=== PATIENT | female | born 1970 | race Caucasian/White ===

== ENCOUNTER → 2018-06-17 | Outpatient (CLI) | payer OTHER ==
[2018-06-17 15:15] VITALS: BP 109/57; PULSE 76; TEMP 97.4; BMI 22.1
--- NOTE | 2018-06-17 15:59 | P.GSHP ---
History of Present Illness H&P Date: 06/17/18 Patient with a complaint of white discharge from the left breast nipple and circumareolar incision site. The discharge is quite thick and creamy. She has had multiple prior procedures approximately 15 to drain abscesses in that breast in the past. The last surgery was approximately 3 years ago. She did well up until this time and is now noted drainage at this site again. The patient has had no fever, there is no redness of her breast. The patient had a bilateral mammogram performed [id number]. The findings on this revealed no mammographic evidence of cancer. Annual mammographic screening was recommended. The patient also had an ultrasound performed of her left breast which did not show any lesions of concern. The patient notes increased fullness in the left breast in the upper outer quadrant area which is tender. This has been present for several years. The patient has no nipple discharge or masses of concern in the right breast. The patient began having problems with left breast abscess as a mastitis approximately 20 years ago. Following the of her daughter she developed a mastitis and has subsequently had multiple abscesses drained in the left breast. The patient does not drink caffeinated beverages, she does not eat chocolate. The patient does smoke approximately 5 cigarettes per day for 30 years. Family history: 1. Mother cervical cancer 2. 5 Maternal great aunts, with breast cancer Hormonal history: Menarche: 13 Pregnancies: 6, 2 live births, first at 25, patient did not breast-feed Menopause: Surgical at 30 her ovaries were not removed control pills: Negative Hormones: Negative Past surgical history: 1. Hysterectomy at 30 her ovaries were not removed, told endometriosis 2. Multiple breast surgeries Medical history: 1. 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 Kidney failure transient at the time of the strokes 3. 2015 MRSA pneumona, patient was hospitalized for approximately a month Social history: Smokin cigarettes per day for 30 years Alcohol: Negative Drugs: Negative - Constitutional Constitutional: Denies chills, Denies fever - EENT Comment: Patient is seen by a neurologist for the blurred vision Eyes: bilateral blurred vision, bilateral pain Ears: deny: decreased hearing, tinnitus Ears, nose, mouth and throat: Reports headache, Denies sore throat - Breasts Breasts: bilateral: as per HPI - Cardiovascular Cardiovascular: Reports shortness of breath, Denies chest pain - Respiratory Comment: COPD - Gastrointestinal Comment: constipation, never had a colonoscopy Gastrointestinal: Denies abdominal pain, Denies diarrhea, Denies nausea, Denies vomiting - Genitourinary (Female) Genitourinary: Denies dysuria, Denies hematuria - Musculoskeletal Comment: arthritis in her neck - Integumentary Integumentary: Denies pruritus, Denies rash - Neurological Comment: CVA cognitive dysfunction - Psychiatric Psychiatric: Reports anxiety, Reports depression - Endocrine Endocrine: Reports fatigue, Denies weight change - Hematologic/Lymphatic Comment: none - Allergic/Immunologic Allergic/Immunologic: Reports seasonal allergies Past Medical History Past Medical History: Asthma, COPD, CVA/TIA, Renal Disease, Seizure Disorder Additional Past Medical History / Comment(s): Previous VDRF on 4 occasions, last in 2008, CHF, MIGRAINES, IBS, pancreatitis,SEVERAL TIA'S,SHORT TERM MEMORY PROBLEMS . History of Any Multi-Drug Resistant Organisms: MRSA, Other MDRO Date of last positivie culture/infection: 08/30/15, PT STATED FOUND AT [facility] MDRO Source:: Sputum-bronch/SPUTUM Past Surgical History: Breast Surgery, Hysterectomy, Tubal Ligation Additional Past Surgical History / Comment(s): MASTITIS LT BREAST I&D X15 Past Anesthesia/Blood Transfusion Reactions: No Reported Reaction Past Psychological History: Anxiety Smoking Status: Current every day smoker Past Alcohol Use History: None Reported Additional Past Alcohol Use History / Comment(s): STARTED SMOKING AT AGE 13 - SMOKES 1PPD.DECLINED SMOKING CESSATION BOOKLET. She denies any medical marijuana or marijuana or street drug use. She lives at home with her boyfriend. Past Drug Use History: None Reported Additional Drug Use History / Comment(s): pt states she has been smoking for 30 years - Past Family History Mother Family Medical History: Cancer, Coronary Artery Disease (CAD), Dialysis, Renal Disease Additional Family Medical History / Comment(s): cervical cancer 1970 Medications and Allergies Home Medications Medication Instructions Recorded Confirmed Type ALPRAZolam [Xanax] 1 mg PO Q8H PRN 02/19/16 06/17/18 History Albuterol Nebulized [Ventolin 2.5 mg INHALATION RT-Q4H PRN 02/19/16 06/17/18 History Nebulized] Ipratropium/Albuterol Sulfate 1 puff INHALATION RT-QID 04/02/16 06/17/18 History [Combivent Respimat Inhaler] Ipratropium/Albuterol Sulfate 3 ml INHALATION RT-Q2H PRN 04/02/16 06/17/18 History [Iprat-Albut 0.5-3(2.5) mg/3 ml] Bisacodyl [Dulcolax] 5 mg PO DAILY 06/17/18 06/17/18 History Hydrocodone/Acetaminophen [[place] 1 tab PO Q4HR PRN 06/17/18 06/17/18 History 5-325] Multivitamins, Thera [Multivitamin 1 tab PO DAILY 06/17/18 06/17/18 History (formulary)] Allergies Allergy/AdvReac Type Severity Reaction Status Date / Time azithromycin [From Zithromax] Allergy Rash/Hives Verified 06/17/18 15:08 erythromycin base Allergy Unknown Verified 06/17/18 15:08 [Erythromycin Base] vancomycin Allergy Rash/Hives Verified 06/17/18 15:08 amoxicillin trihydrate AdvReac Nausea & Verified 06/17/18 15:08 [From Augmentin] Vomiting potassium clavulanate AdvReac Nausea & Verified 06/17/18 15:08 [From Augmentin] Vomiting tiotropium bromide AdvReac Vision Verified 06/17/18 15:08 [From Spiriva with Issues, HandiHaler] Rash, & Thrush Surgical - Exam Vital Signs Temp Pulse BP Pulse Ox 97.4 F L 76 109/57 98 06/17/18 15:12 06/17/18 15:12 06/17/18 15:12 06/17/18 15:12 - General moderate distress - Eyes normal ocular movement - ENT no hearing loss, no congestion - Neck no masses, trachea midline - Respiratory normal respiratory effort, clear to auscultation - Cardiovascular Rhythm: regular Heart Sounds: normal: S1, S2 - Abdomen Abdomen: soft, non tender, no guarding, no rigid, no rebound - Neurologic memory loss - Musculoskeletal normal gait, normal posture - Psychiatric oriented to time, oriented to person, oriented to place, speech is normal Breast examination: Right breast: Multiple positional exam no dominant masses or nodules of concern Right axilla: No adenopathy of concern Left breast: Changes related to prior drainage of abscesses, patient has a defect at the medial aspect of the nipple areolar complex which is draining creamy white material as well as creamy white material draining from the nipple itself, there is a area of fullness approximately one to one and half centimeters in size posterior to the nipple areolar complex, in the upper outer quadrant area of the breast is an area of fullness which is approximately 2-2-1/ 2 cm in size this is tender to palpation, this did not visualize on her mammogram nor on her ultrasound as per the report Left axilla: No adenopathy of concern Results Mammogram and ultrasound report reviewed Assessment and Plan Assessment: Impression: 1. Pain left breast with increased nodularity in the upper outer quadrant. 2. Discharge from the left nipple periareolar/fistula region 3. Status post 7 CVAs 4. Cognitive dysfunction 5. Anxiety/questionable bipolar disorder 6. COPD 7. History of kidney failure in the past 8. History of MRSA/pneumonia in the past 9. Multiple prior left breast abscesses drained, the last was approximately 3 years ago Plan: 1. Fine-needle aspiration of area of concern in the left breast 2. Cultures obtained from the nipple discharge region on the left 3. Medical management of medical problems 4. follow up in 1 week CC: Kenya Nunez;
--- NOTE | 2018-06-17 16:01 | P.OP ---
Date of Procedure: 06/17/18 Preoperative Diagnosis: Discharge from left nipple/periareolar fistula area, fullness left breast upper outer quadrant Postoperative Diagnosis: Same Procedure(s) Performed: Cultures obtained from nipple discharge, FNA upper outer quadrant left breast Anesthesia: local Surgeon: Ines Pettit Condition: stable Disposition: same day Operative Findings: Fullness upper-outer quadrant left breast Description of Procedure: The area of the nipple was evaluated and cultures were obtained. Following this the area of the left breast upper outer quadrant was prepped using Betadine. A a 22-gauge needle on a 10 mL syringe was utilized to that to sample the lesion in the upper quadrant. The needle was introduced and multiple passes were obtained into the palpable abnormality. The specimen was then handed off and slides were prepared and sent to pathology. The patient tolerated the procedure in stable condition cultures were obtained as well as an FNA of the upper quadrant area. We will most likely obtain an ultrasound of the upper quadrant area next week when she comes for results
== END | disposition home or self-care (01) ==
LOC: WWCWWP 14:52
PROVIDERS: ATTEND Surgery
DX: N63.21 Unspecified lump in the left breast, upper outer quadrant (principal); N64.4 Mastodynia
CPT/HCPCS: 88173

== ENCOUNTER → 2018-07-01 | Outpatient (CLI) | payer OTHER ==
--- NOTE | 2018-07-01 08:06 | USB ---
Reason for exam: clinical finding. History: Family history of breast cancer in maternal aunt. Indicated problem(s): lump or thickening, nipple abnormality, and other indicated problem in the left breast. Physical Findings: Nurse Summary: questionable fistula left nipple, no drainage, palpable (nurse kp). US Breast LT Technologist: Massiel Tijerina, RT (R)(M) Left complete breast ultrasound includes all four quadrants, the retroareolar region and axilla. Finding demonstrates a 5mm oval, cystic lesion at 3 o'clock, a 6 x 5 x 2mm oval, solid lesion at 11 o'clock for which a biopsy is recommended and a 6 x 3 x 4mm cystic lesion at 2 o'clock. Dense tissue at BB. These results were verbally communicated with the patient and result sheet given to the patient on 07/01/18. ASSESSMENT: Suspicious, BI-RAD 4 RECOMMENDATION: Ultrasound core biopsy of the left breast. (11 o'clock) Manage on a clinical basis with regard to palpable. Called with mammographic findings and has scheduled an appointment for the patient for 07/01/18 at 8:[address] Yip. Biopsy scheduled for 07/06/18 at 12:20. PRELIMINARY REPORT CALLED AND FAXED TO DR. YIP ON 07/01/18.
--- NOTE | 2018-07-01 09:38 | P.PN ---
Progress Note - Text Progress Note Date: 07/01/18 The patient is a 48-year-old white female who presents for results of FNA of the left breast as well as cultures obtained from the left nipple area. The patient states that she has a persistent but decreased drainage from the left nipple area. The drainage appears to be consistent with sebum which would be indicative of a sebaceous cyst. Cultures revealed gram-positive bacilli and gram-positive cocci but no PMNs. The apical be wound culture revealed many normal skin casandra. I suspect that this is a sebaceous cyst which is draining from the area rather than a true abscess. The patient on FNA was noted to have proliferative breast lesion with features consistent with a lesion within the fibrocystic disease spectrum. Atypical epithelial cells were identified. The patient was recommended to undergo a ultrasound of the area a repeat ultrasound was performed at our institution which did reveal in the region of 11:00 a 6 x 5 mm solid lesion. The area which was biopsied appears to be slightly more lateral than this and may not be seen well on mammogram or ultrasound. It is therefore recommended that she proceed with the ultrasound core biopsy however it is also recommended that she undergo excision of the area at approximately 3: 00 in the lateral breast which revealed some atypia and excision of probable sebaceous cyst behind the nipple areolar complex. We will await results of the core biopsy or to scheduling definitive operative intervention. In addition her case will be discussed with infectious disease. Physical examination: Examination at this time is limited to the left breast Upon palpation the patient continues to have sebum-like discharge from the nipple area no discharge at this time is noted from the fistula on the medial aspect of the nipple areolar complex Patient has persistent fullness in the 3 o'clock position of the left breast Impression/plan: 1. This patient has 2 possibly 3 things occurring in the left breast these include Probable sebaceous cyst/less likely not felt to be abscess posterior to the left nipple areolar complex with persistent sebum-like drainage Fullness at the 3 o'clock position for which FNA didn't reveal some atypical cells Lesion noted at 11:00 on ultrasound for which core biopsy is recommended The patient will be seen following core biopsy of the area at 11:00 and surgical intervention will be scheduled at that time this will include 1. Excision of probable sebaceous cyst posterior to left nipple areolar complex 2. Excision of area of atypia in the 3 o'clock position of the left breast 3. Await results of core biopsy of the area in the 11:00 region of the breast and final recommendation to follow depending on results of that biopsy cc: Flavia Horta
== END | disposition home or self-care (01) ==
LOC: RADUSWWP 06:52
PROVIDERS: ATTEND Surgery
DX: N64.52 Nipple discharge (principal)

== ENCOUNTER → 2018-07-01 | Outpatient (CLI) | payer OTHER ==
[2018-07-01 08:44] VITALS: BP 103/69; PULSE 59; TEMP 97.1; BMI 22.1
== END | disposition home or self-care (01) ==
LOC: WWCWWP 07:53
PROVIDERS: ATTEND Surgery
DX: Z53.9 Procedure and treatment not carried out, unspecified reason (principal)

== ENCOUNTER → 2018-07-06 | Day surgery (SDC) | payer OTHER ==
[2018-07-06 11:54] VITALS: TEMP 98.4; BMI 22.1
[2018-07-06 13:39] VITALS: BP 112/73; PULSE 73; RESP 14
--- NOTE | 2018-07-06 16:11 | USB ---
EXAMINATION TYPE: US biopsy breast VAD LT DATE OF EXAM: 07/06/2018 CLINICAL HISTORY: R92.8 ABN MAMMO. TECHNIQUE: Ultrasound guided core biopsy of left breast. COMPARISON: 07/01/2018 FINDINGS: A timeout was performed. The procedure of ultrasound guided core biopsy was explained to th e patient. Benefits, alternatives, and risks were discussed. An informed consent was then obtained. The patient was placed in supine positioning for imaging and for the procedure. The overlying skin w as prepped and draped in usual sterile fashion. Lidocaine buffered with bicarbonate was used as anes thetic into the skin and subcutaneous tissue up to area of concern in the left breast, 11:00 position . A small skin tasneem was made with surgical scalpel. Under ultrasound guidance, a 12-gauge vacuum assisted biopsy gun device was used to obtain [address]. Following this, a biopsy clip was left in lesion. Patient tolerated procedure very well. Discharge instructions were reviewed with the patient. Additionally, discharge instructions were prov ided to the patient's by nursing at discharge. Postprocedure mammogram was obtained. Surgical clip is in the left breast. IMPRESSION: 1. Successful ultrasound-guided core biopsy left o'clock position left breast. Recommendations: 1. Recommendations are pending pathology results.
== END | disposition home or self-care (01) ==
LOC: RADUSWWP 11:11
PROVIDERS: ATTEND Surgery
DX: N60.32 Fibrosclerosis of left breast (principal); N60.02 Solitary cyst of left breast; N62 Hypertrophy of breast; R92.8 Other abnormal and inconclusive findings on diagnostic imaging of breast
CPT/HCPCS: 88305; 77065; 19083; A4648; J2001

== ENCOUNTER 2018-07-20 10:34 | Day surgery (SDC) | payer OTHER ==
[2018-07-16 12:17] VITALS: BMI 22.1
[~2018-07-20 10:34] MED LIST: DEXAMETHASONE SOD PHOSPHATE 10 MG/ML 1 ML VIAL IV ONE; LACTATED RINGERS 1,000 ML IV SCH; LIDOCAINE 1% 20 ML VIAL (10MG/ML) FOR IV START INTRADERMA PRN; MIDAZOLAM 2 MG/2 ML VIAL IV PRN; ONDANSETRON 4 MG/2 ML VIAL IVP ONE; Pre Op ABX Message 1 EACH MISC MISCELLANE ONE; fentaNYL (PF) 50 MCG/ML 2 ML AMP IV PRN
[2018-07-20] MEDS ORDERED: ceFAZolin IN SWFI 2 GM/20 ML SYRINGE IVP ONE (13:00)
[2018-07-20] MEDS ORDERED: HEPARIN SODIUM,PORCINE 5,000 UNIT/ML 1 ML VIAL SQ ONE (13:02)
[2018-07-20] MEDS ORDERED: LIDOCAINE 1% INJ 10MG/ML (20 ML MDV) SQ ONE ×3 (14:11→14:33)
[2018-07-20] MEDS ORDERED: MIDAZOLAM 2 MG/2 ML VIAL ONE (14:18)
[2018-07-20] MEDS ORDERED: PROPOFOL 10 MG/ML 20 ML VIAL IV ONE (14:18)
[2018-07-20] MEDS ORDERED: SUCCINYLCHOLINE CHLORIDE 100 MG/5 ML SYR IV ONE (14:18)
[2018-07-20] MEDS ORDERED: fentaNYL (PF) 50 MCG/ML 2 ML AMP ONE (14:18)
[2018-07-20] MEDS ORDERED: LIDOCAINE 1% INJ 10MG/ML (20 ML MDV) ONE (14:18)
[2018-07-20] MEDS ORDERED: LACTATED RINGERS 1,000 ML IV ONE (14:32)
--- NOTE | 2018-07-20 15:24 | P.OP ---
Date of Procedure: 07/20/18 Preoperative Diagnosis: Nodularity left breast upper outer quadrant area FNA performed preoperative Periareolar abscess/cyst Postoperative Diagnosis: Same Procedure(s) Performed: Excision of area of nodularity left breast upper outer quadrant region, excision of cystic lesion posterior to the nipple complex Anesthesia: KATHARINEA Surgeon: Ines Pettit Estimated Blood Loss (ml): 5 IV fluids (ml): 500 Pathology: other (Lesion left breast upper outer quadrant region, cystic-like lesion posterior to no blurry Oler complex) Condition: stable Disposition: PACU Indications for Procedure: Palpable lesion upper outer quadrant left breast FNA performed, cystic lesion posterior nipple areolar complex Operative Findings: Very dense breast tissue upper outer quadrant, post nipple areolar complex sebum /cystic lesion Description of Procedure: The patient was taken to the operating room and following induction of anesthesia the left breast was prepped and draped in a sterile fashion. Preoperatively she received Ancef. She has a history of multiple breast abscesses in the past. She had a palpable lesion in the upper quadrant of the left breast which was not seen radiographically. An FNA was done of this which was reportedly atypical. The this area was approached initially. An incision was made over this and the surrounding tissue was excised. The tissue was extremely dense. After assured that hemostasis was attained the deep tissues were closed with 3-0 Vicryl suture. The skin was closed with 4-0 Monocryl. A reinforced skin suture of nylon was placed. Following this at the periareolar area circumareolar incision was made through prior scar tissue and a residual tract. This was dense scar tissue and upon entering this there was noted to be what appeared to be sebum posterior to the nipple area. This tissue was excised. Following this the wound was well irrigated. Cultures were obtained although this did not appear to be acute infection. The deep tissues were closed with 3-0 Vicryl suture. The skin was closed using a nylon suture. A small portion of the incision was left open for drainage. The patient tolerated the procedure in stable condition. All instrument and sponge counts were correct at the end of the case.
--- NOTE | 2018-07-20 15:26 | P.DS ---
Providers Attending physician: Ines Pettit Primary care physician: Tahir Berrios Plan - Discharge Summary New Discharge Prescriptions: No Action ALPRAZolam [Xanax] 1 mg PO Q6HR PRN PRN Reason: Anxiety Albuterol Nebulized [Ventolin Nebulized] 2.5 mg INHALATION RT-Q4H PRN PRN Reason: Shortness Of Breath Ipratropium/Albuterol Sulfate [Combivent Respimat Inhaler] 1 puff INHALATION RT-QID Multivitamins, Thera [Multivitamin (formulary)] 1 tab PO DAILY Bisacodyl [Dulcolax] 5 mg PO DAILY Topiramate 50 mg PO BID QUEtiapine [SEROquel] 50 mg PO BID Hydrocodone/Acetaminophen [[place] 5-325] 1 tab PO Q6HR PRN PRN Reason: Pain Naratriptan HCl 1 mg PO DAILY PRN PRN Reason: Migraine Headache Ibuprofen [Motrin Ib] 200 mg PO Q6HR Ipratropium-Albuterol Nebulize [Duoneb 0.5 mg-3 mg/3 ml Soln] 3 ml INHALATION QID PRN PRN Reason: Shortness Of Breath Loratadine [Claritin] 10 mg PO BID Discharge Medication List ALPRAZolam [Xanax] 1 mg PO Q6HR PRN 02/19/16 [History] Albuterol Nebulized [Ventolin Nebulized] 2.5 mg INHALATION RT-Q4H PRN 02/19/16 [ History] Ipratropium/Albuterol Sulfate [Combivent Respimat Inhaler] 1 puff INHALATION RT- QID 04/02/16 [History] Bisacodyl [Dulcolax] 5 mg PO DAILY 06/17/18 [History] Multivitamins, Thera [Multivitamin (formulary)] 1 tab PO DAILY 06/17/18 [History ] Hydrocodone/Acetaminophen [[place] 5-325] 1 tab PO Q6HR PRN 06/18/18 [History] Ibuprofen [Motrin Ib] 200 mg PO Q6HR 06/18/18 [History] Ipratropium-Albuterol Nebulize [Duoneb 0.5 mg-3 mg/3 ml Soln] 3 ml INHALATION QID PRN 06/18/18 [History] Loratadine [Claritin] 10 mg PO BID 06/18/18 [History] Naratriptan HCl 1 mg PO DAILY PRN 06/18/18 [History] QUEtiapine [SEROquel] 50 mg PO BID 06/18/18 [History] Topiramate 50 mg PO BID 06/18/18 [History] Follow up Appointment(s)/Referral(s): Ines Pettit MD [STAFF PHYSICIAN] - 1 Week Activity/Diet/Wound Care/Special Instructions: Do not drive today Patient may shower after 48 hours Patient to wear bra until seen by Dr. Fuentes Discharge Disposition: HOME SELF-CARE
[2018-07-20 15:38] VITALS: TEMP 97
[2018-07-20] MEDS: HYDROmorphone 1 MG/ML 1 ML SYRINGE IVP ONE ×2 (15:49→15:52)
[2018-07-20 15:54] VITALS: RESP 16
[2018-07-20] MEDS: diphenhydrAMINE 50 MG/ML 1 ML VIAL IVP ONE ×2 (15:55→16:27)
[2018-07-20] MEDS: MEPERIDINE 50 MG/ML SYRINGE IVP ONE ×2 (16:17→16:24)
[2018-07-20] MEDS ORDERED: HYDROcodone/APAP 5-325MG 1 EACH TAB PO ONE (17:05)
[2018-07-20 17:30] VITALS: BP 93/53; PULSE 75
== END 2018-07-20 17:52 | disposition home or self-care (01) ==
LOC: OR 10:34
PROVIDERS: ATTEND Surgery
DX: N60.32 Fibrosclerosis of left breast (principal); N60.92 Unspecified benign mammary dysplasia of left breast; N64.0 Fissure and fistula of nipple; J44.9 Chronic obstructive pulmonary disease, unspecified; Z86.73 Personal history of transient ischemic attack (TIA), and cerebral infarction without residual deficits; K21.9 Gastro-esophageal reflux disease without esophagitis; F41.9 Anxiety disorder, unspecified; N28.9 Disorder of kidney and ureter, unspecified; M19.90 Unspecified osteoarthritis, unspecified site; Z88.8 Allergy status to other drugs, medicaments and biological substances; G43.909 Migraine, unspecified, not intractable, without status migrainosus; Z87.19 Personal history of other diseases of the digestive system; F17.210 Nicotine dependence, cigarettes, uncomplicated; Z80.3 Family history of malignant neoplasm of breast; Z79.1 Long term (current) use of non-steroidal anti-inflammatories (NSAID); Z79.899 Other long term (current) drug therapy; Z88.1 Allergy status to other antibiotic agents; Z88.0 Allergy status to penicillin
CPT/HCPCS: 19120 ×2; 88305; 88307; 87070; 87205; 87075; J2250; J1200; J1644; J1100; J2175; J2405; J2001; J3010; J1170; J0330; J2704; J0690

== ENCOUNTER → 2018-07-30 | Outpatient (CLI) | payer OTHER ==
[2018-07-30 11:12] VITALS: BP 114/71; PULSE 69; BMI 22.1
--- NOTE | 2018-07-30 11:25 | P.PN ---
Progress Note - Text Progress Note Date: 07/30/18 Patient presents today for postoperative evaluation. She is status post excision of lesion in the left lateral breast as well as excision of the area at the nipple areolar region. She had drainage. We have reviewed the pathology report which reveals left breast lesion excision [place] angiomatous stromal hyperplasia no evidence of cancer, skin of the nipple areolar fistula debridement benign squamous epithelium and dermis consistent with clinically stated nipple areolar origin, and benign breast parenchyma with limited fibrocystic disease changes including fibroadenomatoid changes and intraductal hyperplasia. The patient is doing well at this time without complaints. Physical examination Area of the incisions were clean and dry and well-healed sutures removed Impression/plan: 1. Patient status post excision of lesion of concern left breast lateral area which revealed some atypia on a needle biopsy this was consistent with past 2. Excision of fistulous area which was benign Plan: 1. Follow-up physician exam in 1 year with regular scheduled mammograms CC: Flavia Sherwood
== END ==
LOC: WWCWWP 10:36
PROVIDERS: ATTEND Surgery
DX: Z53.9 Procedure and treatment not carried out, unspecified reason (principal)

== ENCOUNTER 2018-08-14 15:31 | Emergency (ER) | payer OTHER ==
[2018-08-14 15:39] VITALS: RESP 18; TEMP 98.2
[2018-08-14] MEDS ORDERED: KETOROLAC 30 MG/ML 1 ML VIAL IVP STA (15:54)
[2018-08-14] MEDS ORDERED: SODIUM CHLORIDE 0.9% 1,000 ML IV ONE (15:54)
[2018-08-14] MEDS ORDERED: MORPHINE SULFATE 4 MG/ML SYRINGE IVP ONE (15:54)
--- NOTE | 2018-08-14 16:03 | ED ---
General Adult HPI - General Chief complaint: Fever Stated complaint: Infection s/p lumpectomy Time Seen by Provider: 08/14/18 15:45 Source: patient Mode of arrival: ambulatory Limitations: no limitations - Related Data Home Medications Medication Instructions Recorded Confirmed ALPRAZolam [Xanax] 1 mg PO Q6HR 02/19/16 08/14/18 Ipratropium/Albuterol Sulfate 1 puff INHALATION RT-QID 04/02/16 08/14/18 [Combivent Respimat Inhaler] Bisacodyl [Dulcolax] 5 mg PO DAILY 06/17/18 08/14/18 Multivitamins, Thera [Multivitamin 1 tab PO DAILY 06/17/18 08/14/18 (formulary)] Hydrocodone/Acetaminophen [Euclid 1 tab PO Q6HR PRN 06/18/18 08/14/18 5-325] Ibuprofen [Motrin Ib] 200 mg PO Q6HR 06/18/18 08/14/18 Ipratropium-Albuterol Nebulize 3 ml INHALATION RT-QID PRN 06/18/18 08/14/18 [Duoneb 0.5 mg-3 mg/3 ml Soln] Loratadine [Claritin] 10 mg PO BID 06/18/18 08/14/18 Naratriptan HCl 1 mg PO DAILY PRN 06/18/18 08/14/18 QUEtiapine [SEROquel] 100 mg PO HS 06/18/18 08/14/18 Topiramate 50 mg PO BID 06/18/18 08/14/18 Previous Rx's Medication Instructions Recorded Clindamycin [Cleocin] 450 mg PO Q6H #28 capsule 08/14/18 Allergies Allergy/AdvReac Type Severity Reaction Status Date / Time azithromycin [From Zithromax] Allergy Rash/Hives Verified 08/14/18 15:46 erythromycin base Allergy Unknown Verified 08/14/18 15:46 [Erythromycin Base] vancomycin Allergy Rash/Hives Verified 08/14/18 15:46 amoxicillin trihydrate AdvReac Nausea & Verified 08/14/18 15:46 [From Augmentin] Vomiting potassium clavulanate AdvReac Nausea & Verified 08/14/18 15:46 [From Augmentin] Vomiting tiotropium bromide AdvReac Vision Verified 08/14/18 15:46 [From Spiriva with Issues, HandiHaler] Rash, & Thrush Review of Systems ROS Statement: Those systems with pertinent positive or pertinent negative responses have been documented in the HPI. ROS Other: All systems not noted in ROS Statement are negative. Constitutional: Reports: fever Skin: Reports: change in color Past Medical History Past Medical History: Asthma, Heart Failure, COPD, CVA/TIA, Renal Disease, Seizure Disorder Additional Past Medical History / Comment(s): Previous VDRF on 4 occasions- last in 2008, MIGRAINES, IBS, pancreatitis, SEVERAL TIA'S- last in 2014, SHORT TERM MEMORY PROBLEMS., LT BREAST LEAKAGE AND LUMP History of Any Multi-Drug Resistant Organisms: MRSA, Other MDRO Date of last positivie culture/infection: 08/30/15, PT STATED FOUND AT [facility] MDRO Source:: Sputum-bronch/SPUTUM Past Surgical History: Breast Surgery, Hysterectomy, Tubal Ligation Additional Past Surgical History / Comment(s): MASTITIS LT BREAST I&D X15 episodes, Past Anesthesia/Blood Transfusion Reactions: No Reported Reaction Additional Past Anesthesia/Blood Transfusion Reaction / Comment(s): Patient states she had a seizure that was induced by anesthesia when she had breast surgery at [facility] in 1997- . No blood transfusion to date Past Psychological History: Anxiety, Bipolar Smoking Status: Current every day smoker Past Alcohol Use History: None Reported Past Drug Use History: None Reported - Past Family History Mother Family Medical History: Cancer, Coronary Artery Disease (CAD), Dialysis, Renal Disease Additional Family Medical History / Comment(s): cervical cancer 1970, heart transplant age age 42, at age 54 from aortic aneurysm General Exam Limitations: no limitations General appearance: alert, in no apparent distress Head exam: Present: atraumatic, normocephalic Eye exam: Present: normal appearance ENT exam: Present: normal exam, mucous membranes moist Neck exam: Present: normal inspection Respiratory exam: Present: normal lung sounds bilaterally. Absent: respiratory distress, wheezes Cardiovascular Exam: Present: regular rate, normal rhythm GI/Abdominal exam: Present: soft. Absent: distended Rectal exam: Present: deferred Extremities exam: Present: normal inspection Back exam: Present: normal inspection, full ROM Neurological exam: Present: alert, oriented X3 Psychiatric exam: Present: normal affect, normal mood Skin exam: Present: warm, dry, intact, rash (patient has a cellulitic appear rash at the 9 o'clock position to the left nipple. skin is warm and red, it is painful to palpation. no fluctuance noted on exam. nipple is inverted, but patient states this is from previous surgeries) Course Vital Signs 08/14/18 08/14/18 15:36 19:00 Temperature 98.2 F Pulse Rate 75 57 L Respiratory 18 18 Rate Blood Pressure 117/76 107/57 O2 Sat by Pulse 100 99 Oximetry Medical Decision Making - Medical Decision Making Patient is a 48-year-old female who presents with a chief complaint of left breast pain status post lumpectomy performed on the of last month. On initial evaluation, vital signs are stable, patient is afebrile, she is in no acute distress. Examination of the areas consistent with cellulitis, less likely abscess as there is no fluctuance felt. This case was discussed with Dr. Fuentes who performed the surgery. Dr. Fuentes is agreeable with the current workup and a breast ultrasound. This case will be discussed with Dr. Fuentes again after lab work is completed. Patient given morphine, Toradol, and IV fluids. 6:53 PM Case again discussed with Dr. Fuentes. Labs are unremarkable, ultrasound shows a well-defined pocket of fluid that could be community relations representative hematoma versus seroma versus abscess. Verbal and written consent was obtained from the patient to proceed with a needle aspiration. I was able to receive 10 mL of purulent material likely consistent with abscess. Aerobic and anaerobic cultures were sent. Patient started on clindamycin. At this time, patient stable for follow-up in the office with Dr. Fuentes. Patient has been instructed to call the office and be seen on Thursday. He was further instructed to return to the emergency department if symptoms worsen or change. Continue taking Euclid as prescribed at home. - Lab Data Result diagrams: 08/14/18 16:09 08/14/18 16:02 Lab Results 08/14/18 08/14/18 Range/Units 16:02 16:09 WBC 10.1 (3.8-10.6) k/uL RBC 4.08 (3.80-5.40) m/uL Hgb 13.3 (11.4-16.0) gm/dL Hct 39.4 (34.0-46.0) % MCV 96.5 (80.0-100.0) fL MCH 32.5 (25.0-35.0) pg MCHC 33.7 (31.0-37.0) g/dL RDW 12.5 (11.5-15.5) % Plt Count 205 (150-450) k/uL Neutrophils % 68 % Lymphocytes % 20 % Monocytes % 5 % Eosinophils % 4 % Basophils % 1 % Neutrophils # 6.9 (1.3-7.7) k/uL Lymphocytes # 2.0 (1.0-4.8) k/uL Monocytes # 0.5 (0-1.0) k/uL Eosinophils # 0.4 (0-0.7) k/uL Basophils # 0.1 (0-0.2) k/uL Sodium 140 (137-145) mmol/L Potassium 5.8 H (3.5-5.1) mmol/L Chloride 116 H (98-107) mmol/L Carbon Dioxide 18 L (22-30) mmol/L Anion Gap 6 mmol/L BUN 12 (7-17) mg/dL Creatinine 0.58 (0.52-1.04) mg/dL Est GFR (CKD-EPI)AfAm >90 (>60 ml/min/1.73 sqM) Est GFR (CKD-EPI)NonAf >90 (>60 ml/min/1.73 sqM) Glucose 92 (74-99) mg/dL Calcium 9.2 (8.4-10.2) mg/dL Disposition Clinical Impression: Breast abscess Disposition: HOME SELF-CARE Condition: Good Instructions: Abscess (ED), Fever in Adults (ED) Prescriptions: Clindamycin [Cleocin] 450 mg PO Q6H #28 capsule Is patient prescribed a controlled substance at d/c from ED?: No Referrals: Flavia Rose NPC [REFERRING] - 1-2 days
[2018-08-14 16:22] LABS: Anion Gap 6 mmol/L; Blood Urea Nitrogen 12 mg/dL (7-17); Calcium 9.2 mg/dL (8.4-10.2); Carbon Dioxide 18 mmol/L (22-30); Chloride 116 mmol/L (98-107); Glucose 92 mg/dL (74-99); Sodium 140 mmol/L (137-145)
[2018-08-14 16:23] LABS: Potassium 5.8 mmol/L (3.5-5.1)
[2018-08-14 16:28] LABS: Basophils # (A) 0.1 k/uL (0-0.2); Basophils % (A) 1 %; Eosinophils # (A) 0.4 k/uL (0-0.7); Eosinophils % (A) 4 %; HCT 39.4 % (34.0-46.0); HGB 13.3 gm/dL (11.4-16.0); Lymphocytes % (A) 20 %; MCH 32.5 pg (25.0-35.0); MCHC 33.7 g/dL (31.0-37.0); MCV 96.5 fL (80.0-100.0); Mean Platelet Volume 7.5; Monocytes # (A) 0.5 k/uL (0-1.0); Monocytes % (A) 5 %; Neutrophils # (A) 6.9 k/uL (1.3-7.7); Neutrophils % (A) 68 %; Platelet Count 205 k/uL (150-450); RBC 4.08 m/uL (3.80-5.40); RDW 12.5 % (11.5-15.5); WBC 10.1 k/uL (3.8-10.6)
--- NOTE | 2018-08-14 17:47 | USB ---
EXAMINATION TYPE: US breast complete LT DATE OF EXAM: 08/14/2018 COMPARISON: US 2018 CLINICAL HISTORY: Pain. Left breast retroareolar pain following recent lumpectomy Left breast: 3.4 x 1.8 x 3.1cm irregular complex area posterior to nipple IMPRESSION: Hypoechoic complex fluid area demonstrated that could be hematoma or seroma or abscess..
[2018-08-14] MEDS ORDERED: CLINDAMYCIN 150 MG CAP PO STA (18:01)
[2018-08-14] MEDS ORDERED: LIDOCAINE 1%-EPI 1:100,000 30 ML VIAL SQ ONE (18:09)
[2018-08-14 19:01] VITALS: BP 107/57; PULSE 57
[2018-08-14] MEDS ORDERED: HYDROcodone/APAP 5-325MG 1 EACH TAB PO STA (19:21)
== END 2018-08-14 19:38 | disposition home or self-care (01) ==
LOC: EC 15:31
DX: N61.1 Abscess of the breast and nipple (principal); J44.9 Chronic obstructive pulmonary disease, unspecified; G40.909 Epilepsy, unspecified, not intractable, without status epilepticus; G43.909 Migraine, unspecified, not intractable, without status migrainosus; F31.9 Bipolar disorder, unspecified; F41.9 Anxiety disorder, unspecified; F17.200 Nicotine dependence, unspecified, uncomplicated; Z86.14 Personal history of Methicillin resistant Staphylococcus aureus infection; Z86.73 Personal history of transient ischemic attack (TIA), and cerebral infarction without residual deficits; Z79.1 Long term (current) use of non-steroidal anti-inflammatories (NSAID); Z79.899 Other long term (current) drug therapy; Z88.0 Allergy status to penicillin; Z88.1 Allergy status to other antibiotic agents; Z88.8 Allergy status to other drugs, medicaments and biological substances; Z90.12 Acquired absence of left breast and nipple
CPT/HCPCS: 99284; 10160; 96374; 96375; 96361; 36415; 80048; 85025; 87070; 87205; 87075; 76642; J2270; J1885

== ENCOUNTER → 2018-08-16 | Outpatient (CLI) | payer OTHER ==
--- NOTE | 2018-08-16 10:12 | P.PN ---
Subjective Progress Note Date: 08/16/18 Patient is a 48-year-old white female status post excision lesion of concern left breast which had revealed some atypia on 07/20/2018 as well as excision of the fistulous area which was benign. Immediately postoperatively she was doing well. Of significance is the fact that she has had multiple abscesses drained in the left breast in the past. She states approximately 20 times she has had abscesses drained. The patient notes that when she was getting ready for work she had increased tenderness and noticed some erythema in the near. She presented to the emergency department. In the emergency department an ultrasound was performed and the ultrasound revealed some fluid which was aspirated. The aspirated fluid was sent for culture the fluid showed many PMNS and gram-positive cocci. The patient complains it is tender inferior to the nipple. She has not noted any fever but has had chills. She had approximately 10 mL of fluid removed from the area which was sent for culture. The patient states the area was erythematous prior to aspiration and the erythema has now resolved. Past Surgical History: 1. Hysterectomy 2. Multiple abscesses drained from the left breast Past medical history: 1. Seizures 2. Closed head injury 3. Migraines Family History: 1. mother: cervical 2. maternal great aunt (8): breast cancer Hormonal: Menarche: 13 Pregnancies: 4 Menopause: Hysterectomy at the age of 30 BCP: none hormones: none social: Smoke: Half a pack per day Alcohol: Negative Drugs: Negative Objective - Constitutional General appearance: Present: average body habitus - EENT Eyes: Present: EOMI ENT: Present: hearing grossly normal - Neck Neck: Present: normal ROM - Respiratory Respiratory: bilateral: CTA - Cardiovascular Rhythm: regular Heart sounds: normal: S1, S2 - Gastrointestinal Gastrointestinal Comment(s): soft no masses General gastrointestinal: Present: normal bowel sounds - Integumentary Integumentary Comment(s): Scars from prior surgery left breast No erythema at this time in left breast - Musculoskeletal Musculoskeletal: Present: gait normal - Psychiatric Psychiatric: Present: A&O x's 3 - Additional findings Additional findings: Breast examination: Right breast: Multi-positional exam no dominant masses or nodules of concern Right axilla: No adenopathy of concern Left breast: Well-healed scars from prior surgery in the lateral aspect of the breast, multiple positional exam fibrocystic changes, periareolar region in the inner aspect is firmness and tenderness, there is no erythema at this time, it appears that there may be an abscess in the area of the firmness and tenderness Left axilla: No adenopathy of concern Assessment and Plan Assessment: Impression/plan: 1. Abscess left breast near area of prior fistula 2. History of multiple abscesses drained in this breast in the past 3. Excision of fistulous tract in the left breast in the recent past 4. Closed head injury/seizure/CVA Plan: 1. I discussed with the patient attempted conservative management with antibiotics and again aspiration of the area. However the patient is very concerned secondary to her multiple prior abscesses that this has not worked in the past and will not work this time. Therefore secondary to the fullness in the area and the tenderness we have discussed operative incision and drainage with irrigation of the area and packing it and letting this heal from the inside out. The patient understands the risks and benefits of this and wishes to proceed. Cc: Kenya Nunez
== END ==
LOC: WWCWWP 09:42
PROVIDERS: ATTEND Surgery
DX: Z53.9 Procedure and treatment not carried out, unspecified reason (principal)

== ENCOUNTER 2018-08-17 12:04 | Day surgery (SDC) | payer OTHER ==
[2018-08-16 11:43] VITALS: BMI 22.1
[~2018-08-17 12:04] MED LIST changes: -DEXAMETHASONE SOD PHOSPHATE 10 MG/ML 1 ML VIAL IV ONE; +HEPARIN SODIUM,PORCINE 5,000 UNIT/ML 1 ML VIAL SQ ONE; -MIDAZOLAM 2 MG/2 ML VIAL IV PRN; -ONDANSETRON 4 MG/2 ML VIAL IVP ONE; -fentaNYL (PF) 50 MCG/ML 2 ML AMP IV PRN
[2018-08-17] MEDS ORDERED: fentaNYL (PF) 50 MCG/ML 2 ML AMP ONE ×2 (13:32→15:03)
[2018-08-17] MEDS ORDERED: MIDAZOLAM 2 MG/2 ML VIAL ONE ×2 (13:33→15:03)
[2018-08-17] MEDS ORDERED: ONDANSETRON 4 MG/2 ML VIAL ONE (13:33)
[2018-08-17] MEDS ORDERED: HEPARIN SODIUM,PORCINE 5,000 UNIT/ML 1 ML VIAL SQ ONE (14:42)
[2018-08-17] MEDS ORDERED: PROPOFOL 10 MG/ML 20 ML VIAL IV ONE (15:03)
[2018-08-17] MEDS ORDERED: LIDOCAINE 1% INJ 10MG/ML (20 ML MDV) ONE (15:03)
[2018-08-17] MEDS ORDERED: SODIUM CHLORIDE 0.9% 50 ML with CLINDAMYCIN 600 MG IV ONE ×2 (15:20)
--- NOTE | 2018-08-17 16:02 | P.OP ---
Date of Procedure: 08/17/18 Preoperative Diagnosis: Periareolar abscess Postoperative Diagnosis: Same, inverted nipple Procedure(s) Performed: Incision and drainage of periareolar abscess Anesthesia: NAKUL Surgeon: Ines Pettit Estimated Blood Loss (ml): 10 IV fluids (ml): 100 Pathology: other (wall of abcess cavity) Condition: stable Disposition: PACU Indications for Procedure: Periareolar abscess, painful Operative Findings: Serous fluid and prior surgical cavity, inverted nipple Description of Procedure: The patient is a 48-year-old white female who is had multiple breast abscesses in the past. She states she has had at least 20 incision and drainage of breast abscesses. Approximately a month ago she underwent a procedure for a fistula in the breast and did well until recently. The patient was taken to the operating room and following induction of anesthesia the left breast was prepped and draped in a sterile fashion. The area of induration in the periareolar region was incised. This was done via a circumareolar incision. Upon entering into the area of induration approximately 6-8 mL of serous/old blood-tinged fluid were removed. The nipple was evaluated and this was noted to be inverted with cheesy/white drainage where it was inverted. This was able to be everted. The tip of the nipple had a small incision in it, however the tissue appeared to be viable. The distal tip of the nipple was tacked down to itself using nylon suture. The cavity itself was approximately 5 cm x 5 cm. Cultures were obtained. The cavity was well irrigated. A portion of the wall of the cavity was removed as this was very firm and indurated. The cavity itself was friable and the wall was cauterized. In addition powderized Surgicel was applied. The wound was again irrigated. After we were assured that hemostasis was attained the cavity was packed using iodoform gauze. The patient tolerated the procedure in stable condition.
[2018-08-17 16:03] VITALS: TEMP 97.2
--- NOTE | 2018-08-17 16:04 | P.DS ---
Providers Attending physician: Ines Pettit Primary care physician: Tahir Berrios Plan - Discharge Summary New Discharge Prescriptions: No Action ALPRAZolam [Xanax] 1 mg PO Q6HR Ipratropium/Albuterol Sulfate [Combivent Respimat Inhaler] 1 puff INHALATION RT-QID Multivitamins, Thera [Multivitamin (formulary)] 1 tab PO DAILY Bisacodyl [Dulcolax] 5 mg PO DAILY Topiramate 50 mg PO BID QUEtiapine [SEROquel] 100 mg PO HS Hydrocodone/Acetaminophen [Randle 5-325] 1 tab PO Q6HR PRN PRN Reason: Pain Naratriptan HCl 1 mg PO DAILY PRN PRN Reason: Migraine Headache Ibuprofen [Motrin Ib] 200 mg PO Q6HR Ipratropium-Albuterol Nebulize [Duoneb 0.5 mg-3 mg/3 ml Soln] 3 ml INHALATION RT-QID PRN PRN Reason: Shortness Of Breath Loratadine [Claritin] 10 mg PO BID Clindamycin [Cleocin] 450 mg PO Q6H #28 capsule Discharge Medication List ALPRAZolam [Xanax] 1 mg PO Q6HR 02/19/16 [History] Ipratropium/Albuterol Sulfate [Combivent Respimat Inhaler] 1 puff INHALATION RT- QID 04/02/16 [History] Bisacodyl [Dulcolax] 5 mg PO DAILY 06/17/18 [History] Multivitamins, Thera [Multivitamin (formulary)] 1 tab PO DAILY 06/17/18 [History ] Hydrocodone/Acetaminophen [Randle 5-325] 1 tab PO Q6HR PRN 06/18/18 [History] Ibuprofen [Motrin Ib] 200 mg PO Q6HR 06/18/18 [History] Ipratropium-Albuterol Nebulize [Duoneb 0.5 mg-3 mg/3 ml Soln] 3 ml INHALATION RT -QID PRN 06/18/18 [History] Loratadine [Claritin] 10 mg PO BID 06/18/18 [History] Naratriptan HCl 1 mg PO DAILY PRN 06/18/18 [History] QUEtiapine [SEROquel] 100 mg PO HS 06/18/18 [History] Topiramate 50 mg PO BID 06/18/18 [History] Clindamycin [Cleocin] 450 mg PO Q6H #28 capsule 08/14/18 [Rx] Follow up Appointment(s)/Referral(s): Ines Pettit MD [STAFF PHYSICIAN] - 1 Week Patient Instructions/Handouts: *Surgery [facility] - (Anesthesia) Discharge Instructions Outpatient Surgery Activity/Diet/Wound Care/Special Instructions: Patient needs home health care nurse Patient may shower after 48 hours Packing to be changed daily Discharge Disposition: HOME WITH HOME HEALTH SERVICES
[2018-08-17] MEDS ORDERED: diphenhydrAMINE 50 MG/ML 1 ML VIAL IVP ONE (16:15)
[2018-08-17] MEDS: HYDROmorphone 0.5 MG/0.5 ML SYRINGE IVP PRN ×3 (16:15→16:41)
[2018-08-17 16:24] VITALS: RESP 16
[2018-08-17] MEDS ORDERED: MEPERIDINE 50 MG/ML SYRINGE IVP ONE (16:55)
[2018-08-17] MEDS ORDERED: LACTATED RINGERS 1,000 ML IV ONE (16:57)
[2018-08-17 17:33] VITALS: BP 108/70; PULSE 66
== END 2018-08-17 17:37 | disposition home health service (06) ==
LOC: OR 12:04
PROVIDERS: ATTEND Surgery
DX: N61.1 Abscess of the breast and nipple (principal); N64.59 Other signs and symptoms in breast; F41.9 Anxiety disorder, unspecified; J44.9 Chronic obstructive pulmonary disease, unspecified; I50.9 Heart failure, unspecified; G43.909 Migraine, unspecified, not intractable, without status migrainosus; R56.9 Unspecified convulsions; K58.9 Irritable bowel syndrome, unspecified; F17.210 Nicotine dependence, cigarettes, uncomplicated; Z79.899 Other long term (current) drug therapy; Z79.1 Long term (current) use of non-steroidal anti-inflammatories (NSAID); Z79.891 Long term (current) use of opiate analgesic; Z88.1 Allergy status to other antibiotic agents; Z88.0 Allergy status to penicillin; Z86.73 Personal history of transient ischemic attack (TIA), and cerebral infarction without residual deficits
CPT/HCPCS: 87070; 87205; 87075; 10060; J2250; J1200; J1644; J2175; J2405; J2001; J3010; J2704; J1170; 88304

== ENCOUNTER → 2018-08-27 | Outpatient (CLI) | payer OTHER ==
--- NOTE | 2018-08-27 13:03 | P.PN ---
Progress Note - Text Progress Note Date: 08/27/18 Patient is status post incision and drainage of a left breast abscess. At this time the area is healing well. She does have some sutures in the nipple area which are removed. The patient did have cultures performed which revealed free air gram-positive bacilli she. She is not on any antibiotics at this time. She has no evidence of cellulitis at this time. Biopsy of tissue removed at the time of surgery revealed granulation tissue and scar consistent with abscess wall. Physical examination: Lungs: Clear Heart: Regular rate and rhythm Area of abscess his packing which is no evidence of infection at this time is clean Sutures removed The tip of the nipple appears to be somewhat necrotic and there is question as to whether this will slough or he'll this is discussed with the patient Impression: 1. Resolving cellulitis/abscess left breast Plan: 1. Continue present treatment 2. Follow-up 2 weeks CC: Flavia Rose ([place])
[2018-08-27 13:04] VITALS: BP 104/69; PULSE 76; RESP 16; TEMP 97.7
[2018-08-27 13:05] VITALS: BMI 22.8
== END ==
LOC: WWCWWP 12:30
PROVIDERS: ATTEND Surgery
DX: Z53.9 Procedure and treatment not carried out, unspecified reason (principal)

== ENCOUNTER → 2018-10-15 | Outpatient (CLI) | payer OTHER ==
[2018-10-15 13:52] VITALS: BP 116/73; PULSE 80; RESP 18; TEMP 97.9; BMI 23.6
--- NOTE | 2018-10-15 14:38 | P.PN ---
Subjective Progress Note Date: 10/15/18 Principal diagnosis: abcess left breast The patient is a 48-year-old white female status post incision and drainage of a left breast abscess. At this time the area is healing well. The patient is not on any antibiotics at this time. She was recently discharged from home services who are helping her with the packing. She has no evidence of infection or cellulitis. She does not have any fever or chills. Physical examination: Lungs: Clear Heart: Regular rate and rhythm Left breast area of the prior abscess was evaluated there is no evidence of any infection, there is a small residual opening which was packed using quarter inch gauze this is approximately 3 mm in depth The tip of the nipple is well healed Impression: 1. Resolving abscess of the left breast 2. Continue present treatment 3. Follow-up Dr. Fuentes 1 month Cc: Flavia Rose ([place]) Objective - Vital Signs Vital signs: Vital Signs Temp 97.9 F 10/15/18 13:26 Pulse 80 10/15/18 13:26 Resp 18 10/15/18 13:26 BP 116/73 10/15/18 13:26 Pulse Ox 99 10/15/18 13:26 Intake & Output 10/14/18 10/15/18 10/15/18 18:59 06:59 18:59 Weight 70.307 kg
== END | disposition home or self-care (01) ==
LOC: WWCWWP 13:10
PROVIDERS: ATTEND Surgery
DX: Z53.9 Procedure and treatment not carried out, unspecified reason (principal)

== ENCOUNTER 2018-11-02 20:58 | Emergency (ER) | payer OTHER ==
[2018-11-02 21:08] VITALS: RESP 18
[2018-11-02] MEDS ORDERED: MORPHINE SULFATE 4 MG/ML SYRINGE IM STA (21:29)
[2018-11-02] MEDS ORDERED: CEPHALEXIN 500MG STARTER PACK 4 CAP BTL PO STA (22:16)
--- NOTE | 2018-11-02 22:23 | ED ---
Skin/Abscess/FB HPI - General Chief complaint: Skin/Abscess/Foreign Body Stated complaint: left breast abscess Time Seen by Provider: 11/02/18 21:12 Source: patient Mode of arrival: ambulatory Limitations: no limitations - History of Present Illness Initial comments: Viridiana is a 48 yo female with extensive PMH most significant for recurrent episodes of mastitis and breast abscess, she is recently underwent surgical intervention for this 3 times in the past 4 months. He surgical interventions of incompetent by development of recurrent breast abscess. Patient reports she been doing well for approximately 3 weeks, she followed up with her breast surgeon in the office at which time she had no symptoms. Patient reports that this morning after bathing she noticed that her incision opened and had brown discoloration, throughout the day she's noticed that her breast appears red and is very tender to the touch. Patient is concern for recurrent infections or skin to the ER for evaluation. She complains of significant pain in the breast but no other complaints. - Related Data Home Medications Medication Instructions Recorded Confirmed ALPRAZolam [Xanax] 1 mg PO Q6HR 02/19/16 11/02/18 Ipratropium/Albuterol Sulfate 1 puff INHALATION RT-QID 04/02/16 11/02/18 [Combivent Respimat Inhaler] Bisacodyl [Dulcolax] 5 mg PO DAILY 06/17/18 11/02/18 Multivitamins, Thera [Multivitamin 1 tab PO DAILY 06/17/18 11/02/18 (formulary)] Ibuprofen [Motrin Ib] 200 mg PO Q6HR PRN 06/18/18 11/02/18 Ipratropium-Albuterol Nebulize 3 ml INHALATION RT-QID PRN 06/18/18 11/02/18 [Duoneb 0.5 mg-3 mg/3 ml Soln] Naratriptan HCl 1 mg PO DAILY PRN 06/18/18 11/02/18 QUEtiapine [SEROquel] 50 mg PO HS 06/18/18 11/02/18 Advair(Unknown Dose) 1 puff INHALATION RT-BID 11/02/18 11/02/18 Albuterol Inhaler [Ventolin Hfa 1 - 2 puff INHALATION RT-Q6H PRN 11/02/18 Inhaler] Symbicort(Unknown Dose) 2 puff INHALATION RT-BID 11/02/18 11/02/18 Previous Rx's Medication Instructions Recorded Cephalexin [Keflex] 500 mg PO Q6HR #28 cap 11/02/18 Allergies Allergy/AdvReac Type Severity Reaction Status Date / Time azithromycin [From Zithromax] Allergy Rash/Hives Verified 11/02/18 21:21 erythromycin base Allergy Unknown Verified 11/02/18 21:21 [Erythromycin Base] vancomycin Allergy Rash/Hives Verified 11/02/18 21:21 amoxicillin trihydrate AdvReac Nausea & Verified 11/02/18 21:21 [From Augmentin] Vomiting potassium clavulanate AdvReac Nausea & Verified 11/02/18 21:21 [From Augmentin] Vomiting tiotropium bromide AdvReac Vision Verified 11/02/18 21:21 [From Spiriva with Issues, HandiHaler] Rash, & Thrush Review of Systems ROS Statement: Those systems with pertinent positive or pertinent negative responses have been documented in the HPI. ROS Other: All systems not noted in ROS Statement are negative. Past Medical History Past Medical History: Asthma, Heart Failure, COPD, CVA/TIA, Renal Disease, Respiratory Disorder, Seizure Disorder Additional Past Medical History / Comment(s): Previous VDRF on 4 occasions- last in 2008, MIGRAINES, IBS, pancreatitis, SEVERAL TIA'S- last in 2014, SHORT TERM MEMORY PROBLEMS. History of Any Multi-Drug Resistant Organisms: MRSA, Other MDRO Date of last positivie culture/infection: 08/30/15, -2014 PT STATED FOUND AT [facility] MDRO Source:: Sputum-bronch/SPUTUM Past Surgical History: Breast Surgery, Hysterectomy, Tubal Ligation Additional Past Surgical History / Comment(s): MASTITIS LT BREAST I&D X15 episodes. LT BREAST NODULE EXC 07/20/18. Past Anesthesia/Blood Transfusion Reactions: Previous Problems w/ Anesthesia Additional Past Anesthesia/Blood Transfusion Reaction / Comment(s): Patient states she had a seizure that was induced by anesthesia when she had breast surgery at [facility] in 1997- . No blood transfusion to date Past Psychological History: Anxiety, Bipolar Smoking Status: Current every day smoker Past Alcohol Use History: None Reported Past Drug Use History: None Reported - Past Family History Mother Family Medical History: Cancer, Coronary Artery Disease (CAD), Dialysis, Renal Disease Additional Family Medical History / Comment(s): cervical cancer 1970, heart transplant age age 42, at age 54 from aortic aneurysm General Exam - General Exam Comments Initial Comments: Physical Exam GENERAL: Patient is well-developed and well-nourished. Patient is nontoxic and well- hydrated and is in no distress. HENT: Normocephalic, Atraumatic. EYES: PERRL, EOMI PULMONARY: Unlabored respirations CARDIOVASCULAR: There is a regular rate and rhythm without any murmurs gallops or rubs. ABDOMEN: Soft and nontender with normal bowel sounds. SKIN: Left breast with erythema the medial side surrounding the area like, erythema extends approximately 2 cm medially and is 4 cm from superior to inferior edge. Incision surrounding the area a lot is open with brownish colored drainage noted on the gauze and the patient's bra. Bedside ultrasound reveals cobblestoning of the tissues consistent with cellulitis, no large pockets of fluid collection or evidence of abscess would be amenable to I&D : Deferred NEUROLOGIC: Patient is alert and oriented x3. Moving all extremities spontaneously MUSCULOSKELETAL: Normal extremities with adequate strength and full range of motion. No lower extremity swelling or edema. No calf tenderness. PSYCHIATRIC: Normal psychiatric evaluation. Limitations: no limitations Limitations: no limitations Course Vital Signs 11/02/18 21:02 Temperature 97.8 F Pulse Rate 73 Respiratory 18 Rate Blood Pressure 113/78 O2 Sat by Pulse 99 Oximetry Medical Decision Making - Medical Decision Making The patient was seen and evaluated history was obtained from review of medical record Patient has had recurrent breast abscesses with cultures obtained revealing polymicrobial infections Patient in significant discomfort would not tolerate bedside ultrasound, 4 mg IM morphine was ordered Patient tolerated bedside ultrasound which revealed cellulitis but no obvious abscess Patient care was discussed with the patient's surgeon Dr. Pettit who agrees with the plan for oral antibiotics and outpatient follow-up, patient is scheduled to see Dr. Pettit on at 8 AM. Disposition Clinical Impression: Cellulitis of breast Disposition: HOME SELF-CARE Condition: Good Instructions: Cellulitis (ED) Prescriptions: Cephalexin [Keflex] 500 mg PO Q6HR #28 cap Is patient prescribed a controlled substance at d/c from ED?: No Referrals: Tahir Berrios MD [Primary Care Provider] - 1-2 days Ines Pettit MD [STAFF PHYSICIAN] - 1-2 days Time of Disposition: 22:23
[2018-11-02 22:37] VITALS: BP 112/66; PULSE 66; TEMP 98
== END 2018-11-02 22:34 | disposition home or self-care (01) ==
LOC: EC 20:58
DX: N61.0 Mastitis without abscess (principal); J44.9 Chronic obstructive pulmonary disease, unspecified; F41.9 Anxiety disorder, unspecified; F31.9 Bipolar disorder, unspecified; F17.200 Nicotine dependence, unspecified, uncomplicated; Z86.73 Personal history of transient ischemic attack (TIA), and cerebral infarction without residual deficits; Z86.14 Personal history of Methicillin resistant Staphylococcus aureus infection; Z98.890 Other specified postprocedural states; Z79.51 Long term (current) use of inhaled steroids; Z79.899 Other long term (current) drug therapy; Z88.1 Allergy status to other antibiotic agents; Z88.0 Allergy status to penicillin; Z88.8 Allergy status to other drugs, medicaments and biological substances
CPT/HCPCS: 99283; 96372; J2270

== ENCOUNTER → 2018-11-04 | Outpatient (CLI) | payer OTHER ==
[2018-11-04 08:24] VITALS: BP 120/78; PULSE 83; RESP 18; TEMP 97.8; BMI 23.7
--- NOTE | 2018-11-04 09:19 | P.GSHP ---
History of Present Illness H&P Date: 11/04/18 Chief Complaint: breast abcess Patient is status post I&D of left breast abcess multiple times the last on August 17. Patient has had this area drained approximately 20 times. After the drainage on August 17 the area healed. However approximately 2-3 days ago she noted that it was swollen and after taking a shower she had brown drainage from the site. She was seen in the emergency room where an ultrasound was reportedly performed by the emergency room physician. The patient was told that she had cellulitis but no definite abscess for drainage. The patient has no fever. The patient has minimal drainage at this time. She was started on Keflex in the emergency room. No cultures were obtained. The patient's last bilateral mammogram was done in and May 2018. These findings revealed no mammographic evidence of cancer. Annual mammographic screening was recommended at that time. The patient also had an ultrasound performed of her left breast which did not show any lesions of concern. On 06-17-18 she had a fine-needle aspiration of an area of concern in the left breast which was benign. The patient did undergo an ultrasound-guided core biopsy of the left breast on 8717, at that time fibrocystic changes were noted and repeat left breast ultrasound in 6 months was recommended. [place] [address] for nodularity left breast upper outer quadrant area were FNA had been performed and periareolar abscess/ cyst the patient was then taken back to the operating room on for recurrent abscess. The pathology from the nodule on 07-20-18 was benign. 1. FNA done 06-17-18 benign 2. OR on 07-20-18 benign biopsy and drainage of abcess 3. OR on 08-17-18 drainage of abcess 4. ultrasound core biosy by radiology 07-06-18 benign Past surgical history: 1. I&D of left breast abscess multiple times approximately 20 2. Hysterectomy Past medical history: 1. 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 Kidney failure transit at the time of the strokes 3. MRSA pneumonia, and 2015 Social history: Smoke: 5 cigarettes per day for 30 years Alcohol: Negative Drugs: Negative - Constitutional Constitutional: Denies chills, Denies fever - EENT Eyes: bilateral blurred vision, bilateral pain Ears: deny: decreased hearing, tinnitus Ears, nose, mouth and throat: Reports headache, Denies sore throat - Breasts Breasts: bilateral: as per HPI - Cardiovascular Cardiovascular: Denies chest pain, Denies shortness of breath - Respiratory Comment: Pneumonia in the past COPD - Gastrointestinal Gastrointestinal: Reports constipation - Genitourinary (Female) Genitourinary: Denies dysuria, Denies hematuria - Menstruation Menstruation: Reports post hysterectomy - Musculoskeletal Comment: Arthritis in neck - Integumentary Comment: Left breast abscess as noted Integumentary: Denies pruritus, Denies rash - Neurological Comment: CVA 7 times - Psychiatric Comment: cognitive problems Psychiatric: Reports anxiety, Reports depression - Endocrine Endocrine: Reports weight change, Denies fatigue - Hematologic/Lymphatic Comment: none - Allergic/Immunologic Comment: vancomycin Past Medical History Past Medical History: Asthma, Heart Failure, COPD, CVA/TIA, Renal Disease, Respiratory Disorder, Seizure Disorder Additional Past Medical History / Comment(s): Previous VDRF on 4 occasions- last in 2008, MIGRAINES, IBS, pancreatitis, SEVERAL TIA'S- last in 2014, SHORT TERM MEMORY PROBLEMS. History of Any Multi-Drug Resistant Organisms: MRSA, Other MDRO Date of last positivie culture/infection: 08/30/15, -2014 PT STATED FOUND AT [facility] MDRO Source:: Sputum-bronch/SPUTUM Past Surgical History: Breast Surgery, Hysterectomy, Tubal Ligation Additional Past Surgical History / Comment(s): MASTITIS LT BREAST I&D X15 episodes. LT BREAST NODULE EXC 07/20/18. Past Anesthesia/Blood Transfusion Reactions: Previous Problems w/ Anesthesia Additional Past Anesthesia/Blood Transfusion Reaction / Comment(s): Patient states she had a seizure that was induced by anesthesia when she had breast surgery at [facility] [place] in 1997- . No blood transfusion to date Past Psychological History: Anxiety, Bipolar Additional Psychological History / Comment(s): Takes Xanax and Seroquel. IRRITABLE, IMPATIENT WITH PHONE CALL AND ASSESSMENT UPDATE FOR SURGERY TODAY. Smoking Status: Current every day smoker Past Alcohol Use History: None Reported Additional Past Alcohol Use History / Comment(s): STARTED SMOKING AT AGE 13 - SMOKES 1PPD, NOW AT 1/2 PPD. She denies any medical marijuana or marijuana or street drug use. She lives at home with her boyfriend. Past Drug Use History: None Reported Additional Drug Use History / Comment(s): pt states she has been smoking for 30 years - Past Family History Mother Family Medical History: Cancer, Coronary Artery Disease (CAD), Dialysis, Renal Disease Additional Family Medical History / Comment(s): cervical cancer 1970, heart transplant age age 42, at age 54 from aortic aneurysm Medications and Allergies Home Medications Medication Instructions Recorded Confirmed Type ALPRAZolam [Xanax] 1 mg PO Q6HR 02/19/16 11/04/18 History Ipratropium/Albuterol Sulfate 1 puff INHALATION RT-QID 04/02/16 11/04/18 History [Combivent Respimat Inhaler] Bisacodyl [Dulcolax] 5 mg PO DAILY 06/17/18 11/04/18 History Multivitamins, Thera [Multivitamin 1 tab PO DAILY 06/17/18 11/04/18 History (formulary)] Ibuprofen [Motrin Ib] 200 mg PO Q6HR PRN 06/18/18 11/04/18 History Ipratropium-Albuterol Nebulize 3 ml INHALATION RT-QID PRN 06/18/18 11/04/18 History [Duoneb 0.5 mg-3 mg/3 ml Soln] Naratriptan HCl 1 mg PO DAILY PRN 06/18/18 11/04/18 History QUEtiapine [SEROquel] 50 mg PO HS 06/18/18 11/04/18 History Advair(Unknown Dose) 1 puff INHALATION RT-BID 11/02/18 11/04/18 History Albuterol Inhaler [Ventolin Hfa 1 - 2 puff INHALATION RT-Q6H PRN 11/02/18 History Inhaler] Cephalexin [Keflex] 500 mg PO Q6HR #28 cap 11/02/18 11/04/18 Rx Symbicort(Unknown Dose) 2 puff INHALATION RT-BID 11/02/18 11/04/18 History Allergies Allergy/AdvReac Type Severity Reaction Status Date / Time azithromycin [From Zithromax] Allergy Rash/Hives Verified 11/04/18 08:13 erythromycin base Allergy Unknown Verified 11/04/18 08:13 [Erythromycin Base] vancomycin Allergy Rash/Hives Verified 11/04/18 08:13 amoxicillin trihydrate AdvReac Nausea & Verified 11/04/18 08:13 [From Augmentin] Vomiting potassium clavulanate AdvReac Nausea & Verified 11/04/18 08:13 [From Augmentin] Vomiting tiotropium bromide AdvReac Vision Verified 11/04/18 08:13 [From Spiriva with Issues, HandiHaler] Rash, & Thrush Surgical - Exam Vital Signs Temp Pulse Resp BP Pulse Ox 97.8 F 83 18 120/78 100 11/04/18 08:14 11/04/18 08:14 11/04/18 08:14 11/04/18 08:14 11/04/18 08:14 - General well developed, well nourished - Eyes normal ocular movement - ENT no hearing loss, no congestion - Neck no masses, trachea midline - Respiratory normal respiratory effort, clear to auscultation - Cardiovascular Rhythm: regular Heart Sounds: normal: S1, S2 - Abdomen Abdomen: soft - Integumentary Left breast examination: Examination of the left breast reveals an open area in the periareolar region approximately 11 o'clock position. The opening is very small but is able to be probed and there is a depth of approximately 2 and half centimeters. There is no drainage from the site at this time. There iserythema or evidence cellulitis of the breast at this time. There is no obvious abscess at this time. - Musculoskeletal normal gait, normal posture - Psychiatric oriented to time, oriented to person, oriented to place, speech is normal Assessment and Plan Assessment: Impression: 1. Recurrent left breast abscess 2. Cognitive impairment related to CVAs 3. COPD 4. Multiple strokes in the past 5. Nicotine dependence Plan: 1. The patient was given the option of an ultrasound at this time to rule out any deep abscesses but deferred to have this done 2. Continue present wound management 3. Follow-up next week 4. Have discussed excisional lumpectomy of the nipple areolar complex secondary to multiple recurrent abscesses, the patient will consider this 5. Continue antibiotic therapy Cc: Dr. Rose
== END ==
LOC: WWCWWP 07:58
PROVIDERS: ATTEND Surgery
DX: Z53.9 Procedure and treatment not carried out, unspecified reason (principal)

== ENCOUNTER 2018-11-16 11:14 | Day surgery (SDC) | payer OTHER ==
[2018-11-15 09:53] VITALS: BMI 23.6
[~2018-11-16 11:14] MED LIST changes: +DEXAMETHASONE SOD PHOSPHATE 10 MG/ML 1 ML VIAL IV ONE; +MIDAZOLAM (PF) 2 MG/2 ML VIAL IV PRN; +ONDANSETRON 4 MG/2 ML VIAL IVP ONE
[2018-11-16] MEDS ORDERED: fentaNYL (PF) 50 MCG/ML 2 ML AMP IV ONE (12:25)
[2018-11-16] MEDS ORDERED: ceFAZolin 2,000 MG in DEXTROSE/WATER 1 50ML.BAG IVPB STA (13:20)
[2018-11-16] MEDS ORDERED: ceFAZolin IN SWFI 2 GM/20 ML SYRINGE IVP ONE (13:30)
[2018-11-16] MEDS ORDERED: HEPARIN SODIUM,PORCINE 5,000 UNIT/ML 1 ML VIAL SQ ONE (13:37)
[2018-11-16] MEDS ORDERED: PROPOFOL 10 MG/ML 20 ML VIAL IV ONE (13:59)
[2018-11-16] MEDS ORDERED: MIDAZOLAM 2 MG/2 ML VIAL ONE (13:59)
[2018-11-16] MEDS ORDERED: fentaNYL (PF) 50 MCG/ML 2 ML AMP ONE (13:59)
[2018-11-16] MEDS ORDERED: LIDOCAINE 1% INJ 10MG/ML (20 ML MDV) ONE (13:59)
[2018-11-16] MEDS ORDERED: LIDOCAINE 1% 20 ML VIAL (10MG/ML) FOR IV START SQ ONE ×2 (14:18)
--- NOTE | 2018-11-16 15:10 | P.OP ---
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 A circumareolar incision was made and dissected inferiorly down to the area of the chest wall. The surrounding tissue was excised. The tissue excised was very firm and the periareolar area appeared to have a fistula extending up to it. After the tissue was excised the wound was well irrigated. The deep tissues were closed using a 3-0 Vicryl suture. A [place] drain was placed at the medial aspect of the incision. The skin was closed using a 4-0 Monocryl. [place] were placed after this in case area had to be opened for any drainage. The drain was secured in place with a nylon suture. The patient tolerated the procedure in stable condition. The specimen was marked for orientation using sutures.
--- NOTE | 2018-11-16 15:12 | P.DS ---
Providers Attending physician: Ines Pettit Primary care physician: Stated None Plan - Discharge Summary New Discharge Prescriptions: No Action ALPRAZolam [Xanax] 1 mg PO Q6HR Multivitamins, Thera [Multivitamin (formulary)] 1 tab PO DAILY Albuterol Inhaler [Ventolin Hfa Inhaler] 1 - 2 puff INHALATION RT-Q6H PRN PRN Reason: Shortness Of Breath Topiramate [Topamax] 50 mg PO BID Vitamin D (Unknown Dose) 1 tab PO DAILY Albuterol Nebulizer 1 dose INHALATION DIRECTED PRN PRN Reason: Shortness Of Breath Docusate [Colace] 100 mg PO DAILY Acetaminophen [Tylenol] 2 tab PO Q4H PRN PRN Reason: Pain Discharge Medication List ALPRAZolam [Xanax] 1 mg PO Q6HR 02/19/16 [History] Multivitamins, Thera [Multivitamin (formulary)] 1 tab PO DAILY 06/17/18 [History ] Albuterol Inhaler [Ventolin Hfa Inhaler] 1 - 2 puff INHALATION RT-Q6H PRN [History] Albuterol Nebulizer 1 dose INHALATION DIRECTED PRN 11/15/18 [History] Topiramate [Topamax] 50 mg PO BID 11/15/18 [History] Vitamin D (Unknown Dose) 1 tab PO DAILY 11/15/18 [History] Acetaminophen [Tylenol] 2 tab PO Q4H PRN 11/16/18 [History] Docusate [Colace] 100 mg PO DAILY 11/16/18 [History] Follow up Appointment(s)/Referral(s): Ines Pettit MD [STAFF PHYSICIAN] - 3 Days Activity/Diet/Wound Care/Special Instructions: Do not drive today Patient may shower after 48 hours Wear bra at all times Discharge Disposition: HOME SELF-CARE
[2018-11-16] MEDS: HYDROmorphone 0.5 MG/0.5 ML SYRINGE IVP PRN ×4 (15:15→15:41)
[2018-11-16 15:32] VITALS: TEMP 97.9
[2018-11-16 15:34] VITALS: RESP 16
[2018-11-16 16:41] VITALS: BP 122/61; PULSE 66
== END 2018-11-16 16:44 | disposition home or self-care (01) ==
LOC: OR 11:14
PROVIDERS: ATTEND Surgery
DX: N61.1 Abscess of the breast and nipple (principal); F17.210 Nicotine dependence, cigarettes, uncomplicated; I69.311 Memory deficit following cerebral infarction; I69.318 Other symptoms and signs involving cognitive functions following cerebral infarction; J44.9 Chronic obstructive pulmonary disease, unspecified; I50.9 Heart failure, unspecified; N28.9 Disorder of kidney and ureter, unspecified; Z79.899 Other long term (current) drug therapy; Z86.14 Personal history of Methicillin resistant Staphylococcus aureus infection; Z88.1 Allergy status to other antibiotic agents
CPT/HCPCS: 88307; 19120; J2250 ×2; J1644; J1100; J2405; J2001; J3010; J2704; J1170; J0690

== ENCOUNTER → 2018-11-19 | Outpatient (CLI) | payer OTHER ==
[2018-11-19 10:45] VITALS: BP 115/76; PULSE 64; RESP 18; TEMP 97.8; BMI 24.3
--- NOTE | 2018-11-19 11:04 | P.PN ---
Progress Note - Text Progress Note Date: 11/19/18 Patient is a 48-year-old white female status post left breast excisional biopsy for treatment of complex abscess area. At this time she is doing well with no complaints. She does have a [place] drain in place which has some serous output. There is no evidence of any infection or inflammation at the incision site. Patient has no history of any fevers at home. Physical exam: Incision is clean and dry AISHA serous drainage associated with it Impression: 1. Status post left breast excisional lumpectomy of chronic abscessed area Plan: 1. Continue present treatment 2. One-week course of antibiotics ordered 3. Follow-up in approximately 1 week CC: Dr. Berrios
== END ==
LOC: WWCWWP 10:11
PROVIDERS: ATTEND Surgery
DX: Z53.9 Procedure and treatment not carried out, unspecified reason (principal)

== ENCOUNTER → 2018-12-02 | Outpatient (CLI) | payer OTHER ==
[2018-12-02 14:29] VITALS: BP 110/78; PULSE 66; RESP 18; TEMP 97.5
--- NOTE | 2018-12-02 15:24 | P.PN ---
Subjective Progress Note Date: 12/02/18 Patient is a 48-year-old white female who is status post left breast excisional biopsy of the nipple areolar complex for chronic abscess disease. At this time the patient is very anxious but has not had any fevers or evidence of infection of the breast. She has a [place] drain in place for removal today. Dominga are in place which are clean and dry. She was taking a course of antibiotics which have been finished. Objective - Vital Signs Vital signs: Vital Signs Temp 97.5 F L 12/02/18 14:22 Pulse 66 12/02/18 14:22 Resp 18 12/02/18 14:22 BP 110/78 12/02/18 14:22 Pulse Ox 100 12/02/18 14:22 Intake & Output 12/01/18 12/02/18 12/02/18 18:59 06:59 18:59 Weight 2.495 kg - Constitutional Constitutional Comment(s): anxiety General appearance: Present: average body habitus - EENT Eyes: Present: EOMI ENT: Present: hearing grossly normal - Neck Neck: Present: normal ROM - Musculoskeletal Musculoskeletal: Present: gait normal - Psychiatric Psychiatric Comment(s): anxious - Additional findings Additional findings: Incision clean and dry, no evidence of infection, [place] drain removed, patient insisted on the area being anesthetized using 1% lidocaine prior to removal of the drain. The area was therefore prepped using Betadine and 5 mL of 1% lidocaine were injected along the incision site. The incision holding the drain was cut and the drain was removed without difficulty. There was no evidence of any drainage or infection with removal of the drain. Cultures were obtained at the drain site. It was opted to leave the dominga in place until tomorrow. The patient will return tomorrow for repeat evaluation. Additionally the patient was given [place] as she states she is having discomfort at the drain site, given to her caregiver. Assessment and Plan Assessment: Impression: 1. Healing incision left breast 2. No evidence of infection 3. Patient is very anxious Plan: 1. Follow-up tomorrow cc: Flavia Rose
== END | disposition home or self-care (01) ==
LOC: WWCWWP 14:13
PROVIDERS: ATTEND Surgery
DX: Z53.9 Procedure and treatment not carried out, unspecified reason (principal)

== ENCOUNTER → 2018-12-03 | Outpatient (CLI) | payer OTHER ==
[2018-12-03 08:10] VITALS: BP 121/59; PULSE 60; RESP 18; TEMP 96.9; BMI 23.4
--- NOTE | 2018-12-03 08:35 | P.PN ---
Progress Note - Text Progress Note Date: 12/03/18 Viridiana returns today for repeat evaluation of the left breast incision. She has had no fever or chills. She has no complaints of pain at this time. Her incision is clean and dry. She is tolerating well her [place] drain being removed. The plan is for removal of martha at this time Physical exam: Incision clean and dry left breast Martha removed and Steri-Strips applied Patient to follow up in 2 weeks for repeat evaluation Cc: Flavia Rose
== END ==
LOC: WWCWWP 07:35
PROVIDERS: ATTEND Surgery
DX: Z53.9 Procedure and treatment not carried out, unspecified reason (principal)

== ENCOUNTER → 2018-12-06 | Outpatient (CLI) | payer OTHER ==
--- NOTE | 2018-12-06 08:02 | MR ---
EXAMINATION TYPE: MR brain wo/w con DATE OF EXAM: 12/06/2018 COMPARISON: 02/06/2016 HISTORY: Memory loss CONTRAST: Performed utilizing 7 mL intravenous Gadavist gadolinium contrast. TECHNIQUE: Multiplanar, multiecho imaging on a 3.0 [place] magnet is performed through the brain. Stud y is performed within 24 hours of arrival to the hospital. The craniovertebral junction is normal. The pituitary is normal. Diffusion-weighted imaging is performed. No abnormal hyperintensity is present to suggest an acute i ntracranial infarct or acute ischemic change. There are scattered punctate areas of hyperintensity on T2 and Inversion Recovery weighted sequences which are non-specific but can be related to microvascular ischemic changes. Ventricles and sulci are appropriate for the patient age. No abnormal enhancement is evident. Paranasal sinuses and mastoid air cells appear unremarkable. IMPRESSIONS: 1. No acute intracranial process. Exam is stable from comparison.
== END | disposition home or self-care (01) ==
LOC: RADMRIMAIN 06:04
PROVIDERS: ATTEND Psychiatry & Neurology Neurology
DX: R41.3 Other amnesia (principal)
CPT/HCPCS: 70553; A9585

== ENCOUNTER → 2018-12-23 | Outpatient (CLI) | payer OTHER ==
[2018-12-23 08:20] VITALS: BP 115/69; PULSE 70; RESP 18; TEMP 97.8
--- NOTE | 2018-12-23 09:20 | P.PN ---
Subjective Progress Note Date: 12/23/18 Patient is a 48 year old white female status post excisional biopsy of the left breast nipple area where complex for chronic abscess disease. The patient's cultures were positive for MRSA and Klebsiella oxytoca. She was treated with a course of Bactrim. The patient at this time is not complaining of any infection like symptoms. She states that the wound is healed well. The patient has no complaints of any pain itching or burning. The patient has recently seen a psychiatrist for posttraumatic stress disorder and anxiety. Her medications have been adjusted as per psychiatry. Objective - Vital Signs Vital signs: Vital Signs Temp 97.8 F 12/23/18 08:10 Pulse 70 12/23/18 08:10 Resp 18 12/23/18 08:10 BP 115/69 12/23/18 08:10 Pulse Ox 98 12/23/18 08:10 Intake & Output 12/22/18 12/23/18 12/23/18 18:59 06:59 18:59 Weight 68.946 kg - Constitutional General appearance: Present: average body habitus - EENT Eyes: Present: EOMI ENT: Present: hearing grossly normal - Neck Neck: Present: normal ROM - Respiratory Respiratory: bilateral: CTA - Cardiovascular Rhythm: regular Heart sounds: normal: S1, S2 - Integumentary Integumentary Comment(s): incision left breast: clean and dry no evidence of infection Integumentary: Present: normal turgor - Psychiatric Psychiatric: Present: A&O x's 3, appropriate affect Assessment and Plan Assessment: Impression: 1. Incision left breast healed well no evidence of any infection 2. Cultures from left breast revealed MRSA and Klebsiella she's been treated with Bactrim 3. Patient is following with a psychiatrist for post-rheumatic stress disorder and anxiety Plan: 1. Would recommend appointment with infectious disease doctor secondary to patient's multiple episodes of MRSA 2. Wound well-healed at this time follow-up here in 6 months CC: Flavia Rose N.P.
== END ==
LOC: WWCWWP 07:46
PROVIDERS: ATTEND Surgery
DX: Z53.9 Procedure and treatment not carried out, unspecified reason (principal)

== ENCOUNTER → 2019-01-22 | Outpatient (CLI) | payer OTHER ==
--- NOTE | 2019-01-24 10:56 | PE ---
EXAMINATION TYPE: PET CT fusion skull to thigh DATE OF EXAM: 01/22/2019 COMPARISON: 01/10/2019 CT chest Prior PET/CT: None HISTORY: Solitary pulmonary nodule TECHNIQUE: Following the intravenous administration of 10.73 mCi of F-18 FDG, whole body images are performed from the skull base to the midthigh. Images are reviewed on the computer in the coronal, a xial, and sagittal planes. Reconstructed rotating images are created on independent workstation and reviewed on the computer. A localization and attenuation correction CT is performed in conjunction with the PET scan. DLP: 329.97 mGycm SCAN: Initial Blood glucose: 84 mg/dL Average Mediastinum SUV: 1.53 Average Liver SUV: 2.41 FINDINGS: NECK: No abnormal uptake THORAX: No abnormal uptake. No suspicious nodules above the size threshold for typical detectability is evident. Very subtle nodu le near the major fissure on the left has an SUV value of 0.45 which is normal. Image 93. ABDOMEN: No abnormal uptake PELVIS: No abnormal uptake OSSEOUS STRUCTURES: No abnormal uptake LOCALIZATION CT: Tiny area of density may be within the major fissure measures 0.5 cm. This are rachel l SUV value. The ascending thoracic aorta flow-limiting pulmonary artery is 2.7 cm. The main pulmonar y artery the bifurcation is 2.1 cm. COMPARISON: No additional nodules are identified on the comparison study. Thickening along the major fissure near the right lung base has resolved over the interval. IMPRESSION: 1. No suspicious uptake to suggest primary or metastatic neoplasm. 2. No suspicious nodules within the lungs. Solitary density along the major fissure on the left can b e followed with a CT examination in 3 months.
== END | disposition home or self-care (01) ==
LOC: RADPETMAIN 11:02
PROVIDERS: ATTEND Internal Medicine Pulmonary Disease
DX: R91.1 Solitary pulmonary nodule (principal)
CPT/HCPCS: 78815; A9552

== ENCOUNTER 2019-03-23 11:00 | Emergency (ER) | payer OTHER ==
[2019-03-23] MEDS ORDERED: methylPREDNISolone SOD SUCCI 125 MG/2 ML VIAL IV STA (11:59)
[2019-03-23] MEDS ORDERED: ALBUTEROL NEBULIZED 2.5 MG/3 ML INHALATION STA (11:59)
[2019-03-23] MEDS ORDERED: KETOROLAC 60 MG/2 ML VIAL IVP STA (12:09)
--- NOTE | 2019-03-23 12:20 | ED ---
General Adult HPI - General Chief complaint: Shortness of Breath Stated complaint: SOB Time Seen by Provider: 03/23/19 11:05 Source: patient, RN notes reviewed Mode of arrival: ambulatory Limitations: no limitations - History of Present Illness Initial comments: This is a 48-year-old female presents emergency department with past medical history significant for MRSA pneumonia as well as COPD and she states at one point having CHF. Patient states she also has been intubated on a number of occasions. Patient comes in today because she's had some shortness of breath over the last 3-4 days and she states been taking treatments has not helped. She states she does not have a primary medical care doctor. She just moved to the area. Patient denies any fever chills. Patient states She's coughed up a little sputum but no significant production. Patient denies any chest pain. Patient denies any headache patient denies numbness weakness. Patient denies abdominal pain patient denies nausea vomiting diarrhea. - Related Data Home Medications Medication Instructions Recorded Confirmed Multivitamins, Thera [Multivitamin 1 tab PO DAILY 06/17/18 03/23/19 (formulary)] Albuterol Inhaler [Ventolin Hfa 1 - 2 puff INHALATION RT-Q6H PRN 11/02/18 03/23/19 Inhaler] Acetaminophen [Tylenol] 650 mg PO Q4H PRN 11/16/18 03/23/19 Albuterol Nebulized [Ventolin 2.5 mg INHALATION RT-TID PRN 03/23/19 03/23/19 Nebulized] Chlorpheniramine Maleate 4 mg PO Q4H PRN 03/23/19 03/23/19 [Chlor-Trimeton] Ibuprofen [Motrin] 600 mg PO Q6H PRN 03/23/19 03/23/19 Ipratropium/Albuterol Sulfate 1 puff INHALATION RT-BID 03/23/19 03/23/19 [Combivent Respimat Inhaler] Ondansetron HCl [Zofran] 8 mg PO Q6H PRN 03/23/19 03/23/19 Thiamine [Vitamin B-1] 100 mg PO DAILY 03/23/19 03/23/19 Topiramate [Topamax] 25 mg PO BID 03/23/19 03/23/19 Trimethobenzamide [Tigan] 300 mg PO QID 03/23/19 03/23/19 busPIRone HCl [Buspar] 10 mg PO TID PRN 03/23/19 03/23/19 fluvoxaMINE MALEATE 50 mg PO DAILY 03/23/19 03/23/19 traZODone HCL [Desyrel] 100 mg PO HS 03/23/19 03/23/19 Previous Rx's Medication Instructions Recorded predniSONE 40 mg PO DAILY #8 tab 03/23/19 Allergies Allergy/AdvReac Type Severity Reaction Status Date / Time azithromycin [From Zithromax] Allergy Rash/Hives Verified 03/23/19 11:35 erythromycin base Allergy Unknown Verified 03/23/19 11:35 [Erythromycin Base] vancomycin Allergy Rash/Hives Verified 03/23/19 11:35 amoxicillin trihydrate AdvReac Nausea & Verified 03/23/19 11:35 [From Augmentin] Vomiting potassium clavulanate AdvReac Nausea & Verified 03/23/19 11:35 [From Augmentin] Vomiting tiotropium bromide AdvReac Vision Verified 03/23/19 11:35 [From Spiriva with Issues, HandiHaler] Rash, & Thrush Review of Systems ROS Statement: Those systems with pertinent positive or pertinent negative responses have been documented in the HPI. ROS Other: All systems not noted in ROS Statement are negative. Past Medical History Past Medical History: Asthma, Heart Failure, COPD, CVA/TIA, Osteoarthritis (OA), Renal Disease, Respiratory Disorder, Seizure Disorder Additional Past Medical History / Comment(s): Previous VDRF x5. (ventilator dependent resp. failure)., MIGRAINES, IBS, pancreatitis, SEVERAL TIA'S- last in 2014, last seizure 2014., SHORT TERM MEMORY PROBLEMS. , hx of Hepatitis A (2008)., Neck Pain, Hx of fx vertebrae., States kidney failure (2014 due to vancomycin ) History of Any Multi-Drug Resistant Organisms: MRSA Date of last positivie culture/infection: 12/02/18 MDRO Source:: BREAST Past Surgical History: Breast Surgery, Hysterectomy, Tubal Ligation Additional Past Surgical History / Comment(s): MASTITIS LT BREAST I&D (x20 episodes)., LT BREAST NODULE EXC 07/20/18. I & D periareolar abscess (07/2018) Past Anesthesia/Blood Transfusion Reactions: Previous Problems w/ Anesthesia Additional Past Anesthesia/Blood Transfusion Reaction / Comment(s): Patient states she had a seizure that was induced by anesthesia when she had breast surgery at [facility] [place] in . No blood transfusion to date Past Psychological History: Anxiety, Bipolar, Depression Smoking Status: Current every day smoker Past Alcohol Use History: None Reported Past Drug Use History: None Reported - Past Family History Mother Family Medical History: Cancer, Coronary Artery Disease (CAD), Dialysis, Renal Disease Additional Family Medical History / Comment(s): cervical cancer 1970, heart transplant age age 42, at age 54 from aortic aneurysm General Exam - General Exam Comments Initial Comments: GENERAL: Patient is well-developed and well-nourished. Patient is nontoxic and well- hydrated and is in mild distress. ENT: Neck is soft and supple. No significant lymphadenopathy is noted. Oropharynx is clear. Moist mucous membranes. Neck has full range of motion without eliciting any pain. EYES: The sclera were anicteric and conjunctiva were pink and moist. Extraocular movements were intact and pupils were equal round and reactive to light. Eyelids were unremarkable. PULMONARY: Patient has expiratory or wheezing diffusely CARDIOVASCULAR: There is a regular rate and rhythm without any murmurs gallops or rubs. ABDOMEN: Soft and nontender with normal bowel sounds. SKIN: Skin is clear with no lesions or rashes and otherwise unremarkable. NEUROLOGIC: Patient is alert and oriented x3. Cranial nerves II through XII are grossly intact. Motor and sensory are also intact. Normal speech, volume and content. Symmetrical smile. MUSCULOSKELETAL: Normal extremities with adequate strength and full range of motion. 1+ edema bilaterally LYMPHATICS: No significant lymphadenopathy is noted PSYCHIATRIC: Normal psychiatric evaluation. Limitations: no limitations Course Vital Signs 03/23/19 03/23/19 03/23/19 11:02 11:28 12:37 Temperature 97.7 F Pulse Rate 71 67 Respiratory 18 20 Rate Blood Pressure 120/82 O2 Sat by Pulse 96 Oximetry 03/23/19 03/23/19 03/23/19 12:39 12:40 12:50 Temperature Pulse Rate 65 75 Respiratory 18 22 24 Rate Blood Pressure 116/76 O2 Sat by Pulse 94 L 97 100 Oximetry 03/23/19 03/23/19 03/23/19 12:52 13:00 13:10 Temperature Pulse Rate 69 68 70 Respiratory 18 20 Rate Blood Pressure 116/76 109/75 O2 Sat by Pulse 98 98 Oximetry 03/23/19 03/23/19 03/23/19 13:20 13:30 13:40 Temperature Pulse Rate 68 84 70 Respiratory 20 18 18 Rate Blood Pressure 109/75 109/75 113/64 O2 Sat by Pulse 97 96 97 Oximetry 03/23/19 03/23/19 13:50 13:51 Temperature 98.6 F Pulse Rate 84 Respiratory 18 Rate Blood Pressure 113/64 O2 Sat by Pulse 98 Oximetry Medical Decision Making - Medical Decision Making EKG shows a normal sinus rhythm at 68 bpm WA interval is 162 QRS is 84 Q-T intervals 416 QTC is 442. Patient's EKG shows no ST segment elevation or depression. Chest x-ray showed no acute abnormality. I gave the patient 2 breathing treatments and steroids in the emergency department. I went back into reevaluate the patient she only had a very slight wheeze she was actually finding was in no distress whatsoever. Patient was fine with being discharged home with some steroids and to follow-up with her primary medical care doctor. - Lab Data Result diagrams: 03/23/19 12:30 03/23/19 12:30 Lab Results 03/23/19 03/23/19 03/23/19 Range/Units 12:30 12:30 12:30 WBC 8.3 (3.8-10.6) k/uL RBC 3.70 L (3.80-5.40) m/uL Hgb 11.8 (11.4-16.0) gm/dL Hct 35.2 (34.0-46.0) % MCV 95.1 (80.0-100.0) fL MCH 31.9 (25.0-35.0) pg MCHC 33.5 (31.0-37.0) g/dL RDW 13.5 (11.5-15.5) % Plt Count 234 (150-450) k/uL Neutrophils % 69 % Lymphocytes % 20 % Monocytes % 4 % Eosinophils % 4 % Basophils % 1 % Neutrophils # 5.7 (1.3-7.7) k/uL Lymphocytes # 1.7 (1.0-4.8) k/uL Monocytes # 0.3 (0-1.0) k/uL Eosinophils # 0.3 (0-0.7) k/uL Basophils # 0.1 (0-0.2) k/uL PT (9.0-12.0) sec INR (<1.2) APTT (22.0-30.0) sec Sodium 140 (137-145) mmol/L Potassium 3.9 (3.5-5.1) mmol/L Chloride 114 H (98-107) mmol/L Carbon Dioxide 17 L (22-30) mmol/L Anion Gap 9 mmol/L BUN 8 (7-17) mg/dL Creatinine 0.58 (0.52-1.04) mg/dL Est GFR (CKD-EPI)AfAm >90 (>60 ml/min/1.73 sqM) Est GFR (CKD-EPI)NonAf >90 (>60 ml/min/1.73 sqM) Glucose 90 (74-99) mg/dL Calcium 9.5 (8.4-10.2) mg/dL Total Bilirubin 0.4 (0.2-1.3) mg/dL AST 29 (14-36) U/L ALT 36 (9-52) U/L Alkaline Phosphatase 70 (38-126) U/L Troponin I (0.000-0.034) ng/mL NT-Pro-B Natriuret Pep 448 pg/mL Total Protein 6.8 (6.3-8.2) g/dL Albumin 3.9 (3.5-5.0) g/dL 03/23/19 03/23/19 Range/Units 12:30 12:30 WBC (3.8-10.6) k/uL RBC (3.80-5.40) m/uL Hgb (11.4-16.0) gm/dL Hct (34.0-46.0) % MCV (80.0-100.0) fL MCH (25.0-35.0) pg MCHC (31.0-37.0) g/dL RDW (11.5-15.5) % Plt Count (150-450) k/uL Neutrophils % % Lymphocytes % % Monocytes % % Eosinophils % % Basophils % % Neutrophils # (1.3-7.7) k/uL Lymphocytes # (1.0-4.8) k/uL Monocytes # (0-1.0) k/uL Eosinophils # (0-0.7) k/uL Basophils # (0-0.2) k/uL PT 9.8 (9.0-12.0) sec INR 0.9 (<1.2) APTT 21.9 L (22.0-30.0) sec Sodium (137-145) mmol/L Potassium (3.5-5.1) mmol/L Chloride (98-107) mmol/L Carbon Dioxide (22-30) mmol/L Anion Gap mmol/L BUN (7-17) mg/dL Creatinine (0.52-1.04) mg/dL Est GFR (CKD-EPI)AfAm (>60 ml/min/1.73 sqM) Est GFR (CKD-EPI)NonAf (>60 ml/min/1.73 sqM) Glucose (74-99) mg/dL Calcium (8.4-10.2) mg/dL Total Bilirubin (0.2-1.3) mg/dL AST (14-36) U/L ALT (9-52) U/L Alkaline Phosphatase (38-126) U/L Troponin I <0.012 (0.000-0.034) ng/mL NT-Pro-B Natriuret Pep pg/mL Total Protein (6.3-8.2) g/dL Albumin (3.5-5.0) g/dL Disposition Clinical Impression: COPD exacerbation Disposition: HOME SELF-CARE Instructions (If sedation given, give patient instructions): COPD (Chronic Obstructive Pulmonary Disease) (ED) Prescriptions: predniSONE 40 mg PO DAILY #8 tab Is patient prescribed a controlled substance at d/c from ED?: No Referrals: None,Stated [Primary Care Provider] - 1-2 days Time of Disposition: 14:25
--- NOTE | 2019-03-23 12:45 | XR ---
EXAMINATION TYPE: XR chest 2V DATE OF EXAM: 03/23/2019 COMPARISON: Prior chest x-ray 09/12/2016 HISTORY: Difficulty breathing TECHNIQUE: Frontal and lateral views of the chest are obtained. FINDINGS: There is no focal air space opacity, pleural effusion, or pneumothorax seen. The cardiac silhouette size is within normal limits. There is a mild spinal curvature present. Patient is rotate d. The osseous structures are intact. IMPRESSION: No acute cardiopulmonary process.
[2019-03-23 12:59] LABS: Basophils # (A) 0.1 k/uL (0-0.2); Basophils % (A) 1 %; Eosinophils # (A) 0.3 k/uL (0-0.7); Eosinophils % (A) 4 %; HCT 35.2 % (34.0-46.0); HGB 11.8 gm/dL (11.4-16.0); Lymphocytes # (A) 1.7 k/uL (1.0-4.8); Lymphocytes % (A) 20 %; MCH 31.9 pg (25.0-35.0); MCHC 33.5 g/dL (31.0-37.0); MCV 95.1 fL (80.0-100.0); Mean Platelet Volume 8.2; Monocytes # (A) 0.3 k/uL (0-1.0); Monocytes % (A) 4 %; Neutrophils # (A) 5.7 k/uL (1.3-7.7); Neutrophils % (A) 69 %; Platelet Count 234 k/uL (150-450); RDW 13.5 % (11.5-15.5); WBC 8.3 k/uL (3.8-10.6)
[2019-03-23 13:10] LABS: ALT 36 U/L (9-52); AST 29 U/L (14-36); Albumin 3.9 g/dL (3.5-5.0); Alkaline Phosphatase 70 U/L (38-126); Anion Gap 9 mmol/L; Blood Urea Nitrogen 8 mg/dL (7-17); Calcium 9.5 mg/dL (8.4-10.2); Carbon Dioxide 17 mmol/L (22-30); Chloride 114 mmol/L (98-107); Glucose 90 mg/dL (74-99); Potassium 3.9 mmol/L (3.5-5.1); Sodium 140 mmol/L (137-145); Total Bilirubin 0.4 mg/dL (0.2-1.3); Total Protein 6.8 g/dL (6.3-8.2)
[2019-03-23 13:21] LABS: INR 0.9 (<1.2); Partial Thromboplastin Time 21.9 sec (22.0-30.0); Prothrombin Time 9.8 sec (9.0-12.0)
[2019-03-23 13:52] VITALS: TEMP 98.6
[2019-03-23 14:38] VITALS: BP 132/84; PULSE 101; RESP 20
== END 2019-03-23 14:48 | disposition home or self-care (01) ==
LOC: EC 11:00
DX: J44.1 Chronic obstructive pulmonary disease with (acute) exacerbation (principal); M19.90 Unspecified osteoarthritis, unspecified site; G40.909 Epilepsy, unspecified, not intractable, without status epilepticus; G43.909 Migraine, unspecified, not intractable, without status migrainosus; F41.9 Anxiety disorder, unspecified; F32.9 Major depressive disorder, single episode, unspecified; F17.200 Nicotine dependence, unspecified, uncomplicated; Z86.73 Personal history of transient ischemic attack (TIA), and cerebral infarction without residual deficits; Z86.14 Personal history of Methicillin resistant Staphylococcus aureus infection; Z86.79 Personal history of other diseases of the circulatory system; Z82.49 Family history of ischemic heart disease and other diseases of the circulatory system; Z79.1 Long term (current) use of non-steroidal anti-inflammatories (NSAID); Z79.899 Other long term (current) drug therapy; Z88.1 Allergy status to other antibiotic agents; Z88.0 Allergy status to penicillin; Z88.8 Allergy status to other drugs, medicaments and biological substances
CPT/HCPCS: 36415; 94640; 93005; 83880; 80053; 84484; 85025; 85610; 85730; 71046; 99285; 96374; 96375; J2930; J1885

== ENCOUNTER → 2019-09-13 | Outpatient (CLI) | payer OTHER ==
--- NOTE | 2019-09-13 20:26 | MR ---
EXAMINATION TYPE: MR lumbar spine wo con DATE OF EXAM: 09/13/2019 COMPARISON: Nuclear medicine PET/CT 01/22/2019 HISTORY: Low back pain, leg pain TECHNIQUE: Multiplanar, multisequence images of the lumbar spine were acquired. L1-L2: Normal disc appearance without desiccation. No herniation, protrusion or disc bulging. No ca nal stenosis is present. Foramina are patent bilaterally. L2-L3: Normal disc appearance without desiccation. No herniation, protrusion or disc bulging. No ca nal stenosis is present. Foramina are patent bilaterally. L3-L4: Normal disc appearance without desiccation. No herniation, protrusion or disc bulging. No ca nal stenosis is present. Foramina are patent bilaterally. L4-L5: Central posterior disc bulge causes anterior mass effect on the thecal sac. Facet arthropathy with hypertrophy ligamentum flavum causes posterior lateral mass effect on the thecal sac. No signifi cant foraminal encroachment. L5-S1: Posterior central disc herniation causes mass effect on the anterior thecal sac and likely the proximal S1 nerve roots. Circumferential extension of endplate disc complex encroaches on the forami na greater on the right than on the left. There is some facet arthropathy change. Lumbar segments are intact. No paraspinal masses are identified. Conus medullaris has a normal appe arance. Lumbar vertebral bodies show preserved height and alignment. There is endplate discogenic mar row signal change, mild multilevel spondylosis. Loss of disc height signal is greatest at L5-S1 and t o lesser extent L4-5. No evident spinal stenosis. There is biliary ductal dilatation. IMPRESSION: Disc herniation L5-S1 and to lesser extent L4-5. There is facet arthropathy. Chronic biliary ductal d ilatation.
== END | disposition home or self-care (01) ==
LOC: RADMRIMAIN 13:29
PROVIDERS: ATTEND Nurse Practitioner Family
DX: M51.27 Other intervertebral disc displacement, lumbosacral region (principal); M51.26 Other intervertebral disc displacement, lumbar region; M46.96 Unspecified inflammatory spondylopathy, lumbar region
CPT/HCPCS: 72148

== ENCOUNTER → 2019-10-18 | Outpatient (CLI) | payer OTHER ==
[2019-10-17 15:25] VITALS: BMI 21.7
[2019-10-18 11:08] VITALS: BP 117/79; PULSE 66; RESP 18
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
== END | disposition home or self-care (01) ==
LOC: PNWHC3 10:32
PROVIDERS: ATTEND Student in an Organized Health Care Education/Training Program
DX: G89.29 Other chronic pain (principal); M54.16 Radiculopathy, lumbar region; F39 Unspecified mood [affective] disorder; M53.3 Sacrococcygeal disorders, not elsewhere classified; M25.50 Pain in unspecified joint; M54.2 Cervicalgia; Z91.410 Personal history of adult physical and sexual abuse; F17.200 Nicotine dependence, unspecified, uncomplicated; Z79.899 Other long term (current) drug therapy; Z88.1 Allergy status to other antibiotic agents
CPT/HCPCS: 99211

== ENCOUNTER 2019-10-25 06:03 | Day surgery (SDC) | payer OTHER ==
[2019-10-21 16:12] VITALS: BMI 22.3
[~2019-10-25 06:03] MED LIST changes: -DEXAMETHASONE SOD PHOSPHATE 10 MG/ML 1 ML VIAL IV ONE; -HEPARIN SODIUM,PORCINE 5,000 UNIT/ML 1 ML VIAL SQ ONE; -LIDOCAINE 1% 20 ML VIAL (10MG/ML) FOR IV START INTRADERMA PRN; -MIDAZOLAM (PF) 2 MG/2 ML VIAL IV PRN; -ONDANSETRON 4 MG/2 ML VIAL IVP ONE; -Pre Op ABX Message 1 EACH MISC MISCELLANE ONE
[2019-10-25 06:30] VITALS: RESP 16; TEMP 97
--- NOTE | 2019-10-25 08:31 | P.PCN ---
Date of Procedure: 10/25/19 Procedure(s) Performed: PREOPERATIVE DIAGNOSIS: 1- Lumbar herniated Disc Diseases 2-Lumbar spondylosis with Facet arthropathy without myelopathy. 3-right sacroiliac joint dysfunction POSTOPERATIVE DIAGNOSIS: 1-Lumber herniated Disc Diseases 2-Lumbar spondylosis with Facet arthropathy without myelopathy. 3-right sacroiliac joint dysfunction. PROCEDURE 1. Lumbar epidural steroid injection under fluoroscopic guidance at the L5-S1 level. (Fluoroscopy imaging was available in radiology department) 2. Lumbar epidurogram. 3. Right sacroiliac joint steroid injections under fluoroscopy guidance ANESTHESIA: Local with 1% lidocaine 3 ml and , moderate sedation with intr avenous Versed 2 mg ,and fentanyle 100 Mcg EBL: Minimal PROCEDURE INDICATION: The patient with low back pain and radiculitis symptoms unresponsive to conservative treatment. Fluoroscopy was used to optimize visualization of the needle placement and to maximize safety. PROCEDURE DESCRIPTION / TECHNIQUE: The patient was seen and identified in the preoperative area. Risks, benefits, complications including but not limited to infections ,bleeding ,allergic reaction to the medications ,nerve damage and not complete pain releife , and alternatives were discussed with the patient. The patient agreed to proceed with the procedure and signed the consent. IV was started, and vital signs were stable. Patient was taken to the OR and time out was completed. The patient was placed in the prone position on procedure table and a pillow was placed under the abdomen to reduce lumbar lordosis. The lumbosacral area was prepped and draped in the usual sterile fashion.ere closely monitored during the procedure. Conscious sedation was used during the procedure to decrease patients anxiety. Vital signs was monitered during the entire procedure. Using anterior-posterior fluoroscopy, the L5-S1 interlaminar space was identified and the skin over this site was marked and then infiltrated with 1% lidocaine subcutaneously. Subsequently, a 20-gauge Tuohy epidural needle was inserted and advanced toward the epidural space using the ``Loss of resistance technique and guided by AP and lateral fluoroscopy. The correct needle position in the epidural space was verified with the injection of 2 mL of the water soluble contrast dye Isovue 200 contrast and observing an excellent epidurogram with the epidural spread of the dye, after negative aspiration for blood and CSF and in the absence of paresthesias. Again after negative aspiration, a 6 ml mixture containing 40 mg of Depo-medrol , and 2 ml of preservative free Normal Saline, and 2 ml of preservative free lidocaine 1% solution was injected and a washout of epidurogram was seen. Needle was withdrawn intac., Then under strict sterile technique, first I did the right sacroiliac joint the which was identified under fluoroscopy guidance been local infiltration of the skin and subcu interstitial with lidocaine 1% then 22-gauge Quincke Needle advanced slowly under fluoroscopy and placed in the right sacroiliac joint nee dle placement confirmed with AP and oblique and lateral view and after appropriate needle placement confirmed and after negative aspiration, or heme , then Ropivacaine 0.5% 3 mL, and 40 mg of Depo-Medrol mixed together and injected in the right sacroiliac joint after negative aspiration patient tolerated the procedure well without any complication. COMPLICATIONS: None DISPOSITION / PLANS: The patient was placed in a supine position and transferred to the recovery area in a stable condition for observation. There was no evidence of lower extremity motor or sensory deficit after the procedure. Patient was discharged from the recovery room after meeting discharge criteria. Home discharge instructions were given to the patient by the staff. The patient was reexamined prior to discharge. The patient will schedule a follow up in the clinic in 2-4 weeks.
[2019-10-25] MEDS ORDERED: LACTATED RINGERS 1,000 ML IV ONE (08:33)
[2019-10-25 08:52] VITALS: BP 99/64; PULSE 67
--- NOTE | 2019-10-25 09:15 | FL ---
Fluoroscopy HISTORY: Pain 6 seconds fluoroscopy time supplied to the referring clinician. 2 intraoperative C-arm images docume nt the procedure. See dictated report from anesthesia.
== END 2019-10-25 09:09 | disposition home or self-care (01) ==
LOC: ORPAIN 06:03
PROVIDERS: ATTEND Specialist
DX: M47.26 Other spondylosis with radiculopathy, lumbar region (principal); M51.16 Intervertebral disc disorders with radiculopathy, lumbar region; M46.1 Sacroiliitis, not elsewhere classified; Z88.1 Allergy status to other antibiotic agents; Z88.0 Allergy status to penicillin; Z88.8 Allergy status to other drugs, medicaments and biological substances; J45.909 Unspecified asthma, uncomplicated; F32.9 Major depressive disorder, single episode, unspecified
CPT/HCPCS: 62323; J2250; J1030; J3010; Q9966; G0260; 27096; 99152

== ENCOUNTER 2019-11-08 07:04 | Day surgery (SDC) | payer OTHER ==
[2019-11-07 10:45] VITALS: BMI 22.8
[2019-11-08 07:46] VITALS: TEMP 98.2
[2019-11-08] MEDS ORDERED: LIDOCAINE 1% 20 ML VIAL (10MG/ML) FOR IV START INTRADERMA ONE (07:58)
--- NOTE | 2019-11-08 08:27 | P.PCN ---
Date of Procedure: 11/08/19 Procedure(s) Performed: PREOPERATIVE DIAGNOSIS: 1- Lumbar herniated Disc Diseases 2-Lumbar spondylosis with Facet arthropathy without myelopathy. 3-right sacroiliac joint dysfunction POSTOPERATIVE DIAGNOSIS: 1-Lumber herniated Disc Diseases 2-Lumbar spondylosis with Facet arthropathy without myelopathy. 3-right sacroiliac joint dysfunction. PROCEDURE 1. Lumbar epidural steroid injection under fluoroscopic guidance at the L5-S1 level. (Fluoroscopy imaging was available in radiology department) 2. Lumbar epidurogram. 3. Right sacroiliac joint steroid injections under fluoroscopy guidance ANESTHESIA: Local with 1% lidocaine 3 ml and , moderate sedation with intravenous Versed 2 mg ,and fentanyle 100 Mcg EBL: Minimal PROCEDURE INDICATION: The patient with low back pain and radiculitis symptoms unresponsive to conservative treatment. Fluoroscopy was used to optimize visualization of the needle placement and to maximize safety. PROCEDURE DESCRIPTION / TECHNIQUE: The patient was seen and identified in the preoperative area. Risks, benefits, complications including but not limited to infections ,bleeding ,allergic reaction to the medications ,nerve damage and not complete pain releife , and alternatives were discussed with the patient. The patient agreed to proceed with the procedure and signed the consent. IV was started, and vital signs were stable. Patient was taken to the OR and time out was completed. The patient was placed in the prone position on procedure table and a pillow was placed under the abdomen to reduce lumbar lordosis. The lumbosacral area was prepped and draped in the usual sterile fashion.ere closely monitored during the procedure. Conscious sedation was used during the procedure to decrease patients anxiety. Vital signs was monitered during the entire procedure. Using anterior-posterior fluoroscopy, the L5-S1 interlaminar space was identified and the skin over this site was marked and then infiltrated with 1% lidocaine subcutaneously. Subsequently, a 20-gauge Tuohy epidural needle was inserted and advanced toward the epidural space using the ``Loss of resistance technique and guided by AP and lateral fluoroscopy. The correct needle position in the epidural space was verified with the injection of 2 mL of the water soluble contrast dye Isovue 200 contrast and observing an excellent epidurogram with the epidural spread of the dye, after negative aspiration for blood and CSF and in the absence of paresthesias. Again after negative aspiration, a 6 ml mixture containing 40 mg of Depo-medrol , and 2 ml of preservative free Normal Saline, and 2 ml of preservative free lidocaine 1% solution was injected and a washout of epidurogram was seen. Needle was withdrawn intac., Then under strict sterile technique, first I did the right sacroiliac joint the which was identified under fluoroscopy guidance been local infiltration of the skin and subcu interstitial with lidocaine 1% then 22-gauge Quincke Needle advanced slowly under fluoroscopy and placed in the right sacroiliac joint needle placement confirmed with AP and oblique and lateral view and after appropriate needle placement confirmed and after negative aspiration, or heme , then Ropivacaine 0.5% 3 mL, and 40 mg of Depo-Medrol mixed together and injected in the right sacroiliac joint after negative aspiration patient tolerated the procedure well without any complication. COMPLICATIONS: None DISPOSITION / PLANS: The patient was placed in a supine position and transferred to the recovery area in a stable condition for observation. There was no evidence of lower extremity motor or sensory deficit after the procedure. Patient was discharged from the recovery room after meeting discharge criteria. Home discharge instructions were given to the patient by the staff. The patient was reexamined prior to discharge. The patient will schedule a follow up in the clinic in 2-4 weeks.
[2019-11-08] MEDS ORDERED: IV FLUID CONTINUATION 1,000 ML IV ONE (08:43)
[2019-11-08 08:47] VITALS: RESP 18
[2019-11-08 08:58] VITALS: BP 112/75; PULSE 63
--- NOTE | 2019-11-08 10:07 | FL ---
Fluoroscopy HISTORY: Pain 3 seconds fluoroscopy time supplied to the referring clinician. 3 intraoperative C-arm images docume nt the procedure. See dictated report from anesthesia.
== END 2019-11-08 09:03 | disposition home or self-care (01) ==
LOC: ORPAIN 07:04
PROVIDERS: ATTEND Specialist
DX: M51.16 Intervertebral disc disorders with radiculopathy, lumbar region (principal); M47.26 Other spondylosis with radiculopathy, lumbar region; Z88.1 Allergy status to other antibiotic agents; Z88.0 Allergy status to penicillin; M46.1 Sacroiliitis, not elsewhere classified
CPT/HCPCS: 62323; J2250; J1030; J3010; Q9966; G0260; 27096; 99152

== ENCOUNTER → 2019-12-05 | Outpatient (CLI) | payer OTHER ==
[2019-12-05 13:40] VITALS: BP 122/75; PULSE 66; RESP 16
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
== END | disposition home or self-care (01) ==
LOC: PNWHC3 12:22
PROVIDERS: ATTEND Anesthesiology
DX: M51.36 Other intervertebral disc degeneration, lumbar region (principal); F39 Unspecified mood [affective] disorder; M54.12 Radiculopathy, cervical region; Z91.410 Personal history of adult physical and sexual abuse; F17.200 Nicotine dependence, unspecified, uncomplicated; Z79.899 Other long term (current) drug therapy
CPT/HCPCS: 99211

== ENCOUNTER → 2019-12-14 | Outpatient (CLI) | payer OTHER ==
--- NOTE | 2019-12-14 15:06 | MR ---
EXAMINATION TYPE: MR cervical spine wo con DATE OF EXAM: 12/14/2019 COMPARISON: None HISTORY: Radicular Pain TECHNIQUE: Multiplanar, multisequence images of the cervical spine were acquired. C2-C3: No evidence for degenerative disc disease. No disc bulge/herniation or protrusion. No Canal stenosis. Foramina are patent bilaterally. C3-C4: No evidence for degenerative disc disease. No disc bulge/herniation or protrusion. No Canal stenosis. Foramina are patent bilaterally. C4-C5: No evidence for degenerative disc disease. No disc bulge/herniation or protrusion. No Canal stenosis. Foramina are patent bilaterally. C5-C6: Small posterior disc bulge C5-6 causes minimal anterior mass effect on the thecal sac. No sign ificant central stenosis or foraminal encroachment. C6-C7: No evidence for degenerative disc disease. No disc bulge/herniation or protrusion. No Canal stenosis. Foramina are patent bilaterally. C7-T1: No evidence for degenerative disc disease. No disc bulge/herniation or protrusion. No Canal stenosis. Foramina are patent bilaterally. Cervical segments are intact. There is normal alignment. Cervical spinal cord is of normal signal. Craniovertebral junction relationships are within normal limits. There is some loss of disc height signal present at C5-6. IMPRESSION: Mild degenerative disc disease. Small posterior disc bulge C4-5.
== END | disposition home or self-care (01) ==
LOC: RADMRIMAIN 09:47
PROVIDERS: ATTEND Anesthesiology
DX: M50.10 Cervical disc disorder with radiculopathy, unspecified cervical region (principal); M50.821 Other cervical disc disorders at C4-C5 level
CPT/HCPCS: 72141

== ENCOUNTER → 2020-01-05 | Outpatient (CLI) | payer OTHER ==
[2020-01-05 12:47] VITALS: BP 116/74; PULSE 80; RESP 16
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
== END | disposition home or self-care (01) ==
LOC: PNWHC3 12:16
PROVIDERS: ATTEND Anesthesiology
DX: M50.30 Other cervical disc degeneration, unspecified cervical region (principal); M79.18 Myalgia, other site; M51.36 Other intervertebral disc degeneration, lumbar region; Z91.410 Personal history of adult physical and sexual abuse; R52 Pain, unspecified; F39 Unspecified mood [affective] disorder; Z87.891 Personal history of nicotine dependence; Z79.899 Other long term (current) drug therapy
CPT/HCPCS: 99211

== ENCOUNTER → 2022-05-22 | Outpatient (CLI) | payer OTHER ==
--- NOTE | 2022-05-22 14:47 | XR ---
EXAMINATION TYPE: XR Hip Complete RT DATE OF EXAM: 05/22/2022 COMPARISON: NONE HISTORY: Pain TECHNIQUE: 2 views submitted FINDINGS: There is no evidence of erosive change or acute fracture. There is cystic change involving the femora l head likely benign. Calcifications also appear likely vascular. IMPRESSION: 1. Arthropathy. Benign-appearing cystic lesion in both femoral
--- NOTE | 2022-05-22 14:48 | XR ---
EXAM TYPE: LUMBAR SPINE X RAY SERIES COMPARISON: NONE HISTORY: Pain TECHNIQUE: 4 views are submitted. FINDINGS: Alignment is anatomic. The pedicles are intact. The transverse processes are intact. There is no s pondylolisthesis. Severe degenerative disc disease with facet arthropathy L5-S1. IMPRESSION: 1. Severe degenerative disc disease with facet arthropathy L5-S1.
== END | disposition home or self-care (01) ==
LOC: RADXRMAIN 14:08
PROVIDERS: ATTEND Physician Assistant Medical
DX: M51.36 Other intervertebral disc degeneration, lumbar region (principal); M47.817 Spondylosis without myelopathy or radiculopathy, lumbosacral region; M85.651 Other cyst of bone, right thigh
CPT/HCPCS: 72100; 73502

== ENCOUNTER → 2022-05-22 | Outpatient (CLI) | payer OTHER ==
[2022-05-22 14:52] VITALS: BP 93/59; PULSE 56; RESP 18
--- NOTE | 2022-05-29 15:31 | P.PAINPG ---
PQRS Measure Charge Sheet Comment: HISTORY OF PRESENT ILLNESS: 51 yr old female as a referral from [facility] presents today with severe and chronic R hip pain x 2 days s/p fall for evaluation. Pt states her LBP and R hip pain is 10/10 in intensity, sharp, achy, sore, throbbing in the R lower aspect of her lumbar spine with radiation of sharp pain down to the R lateral hip. Pain is provoked with twisting, bending, standing, walking and any other activity. Pt is guarding her R lumbar spine & R hip with her hands. Pain is not relieved wiht medicaitons (Tylenol OTC), heat, hot bath soaks, repositioning or rest. Pt is requesting pain medication. 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 No recent weight loss. NEUROLOGICAL: + numbness and tingling along the distal extremities. No seizure disorders or headaches. MUSCULOSKELETAL: + pain PSYCHIATRIC: Denies current depression or suicidal thoughts. Physical Examinations : Constitutional : Cooperative , not in acute distress . Neurologic : Cranial nerve II to XII intact. No focal neur ological deficits. Psychiatric : alert & oriented x 3. Matching mood & appropriate affect. Judgment & insight intact. Musculoskeletal : Cervical Spine Motor strength in the deltoid and biceps: Normal right side. Normal Left side Motor strength biceps and the wrist extensors: Normal right side . Normal left side Motor strength in the triceps muscle: Normal right side. Normal left side Deep tendon reflexes: Normal at the biceps. Normal at Brachioradialis. Normal at triceps Vertebral body tenderness to deep palp ation over Cervical facet loading test: positive bilaterally Spurling test: positive bilaterally Neck distraction test: positive bilaterally Ankur sign: positive bilaterally Lumbar spine Motor strength lower extremities ,thigh and legs 5/5 Right side , 5/5 Left side Deep tendon reflexes : Normal Knee Jerk. Normal Ankle Jerk Vertebral body tenderness over L3, L4, L5 Lumbar facet Loading Test: positive Right / positive Left Range of motion of the lumbar spine Flexion 30 degrees, extension 10 degrees Straight Leg Raise test: Left/ Right positive at degree Nafisa test: positive right / positive left. Severe tenderness over the Sacroiliac joint on the Right / Left sides Gaenslen test: unable to perform due to pain Seated flexion test: unable to perform due to pain Sacral spine : Severe tenderness over the Sacroiliac joint: right side / left side Range of motion: Flexion of the lumbar spine <60 degrees Range of motion: Extension of the lumbar spine <20 degrees Gaenslen's Test positive Dimitri's Test positive Nafisa test: positive right side / left side Thigh Thrust Test Sacral Thrust Test Imaging: None on file Assessment/ Plan : Lumbar pain s/p fall, R hip pain s/p fall Recommendation of lumbar & R hip xray s/p fall. Pt stated she will complete the imaging today and will follow up with our clinic within 1 week for a reevaluation. Medications prescribed Tylenol #3 #18, Diclofenac gel prn. E scribed. Risks, benefits of procedure discussed and patient verbalized understanding. Denies aspirin or anti- coagulant use or medical history of diabetes. Protocol for discontinuation/ continuation of medications renetta procedure discussed. All questions answered. I have spent greater than 30 minutes on patient care today. Dr Oquendo was available by phone for the evaluation of this patient. The time was used to review the medical records including relevant urine studies and Prescription history (MAPs), review of the available imaging, evaluation and examination of the patient, coordination of care with the medical staff and if applicable referring physicians, as well as creation of the medical record PQRS Narrative: Smoking Status Former smoker Hx Alcohol Use (MH) No Home Medications: Ambulatory Orders Multivitamins, Thera [Multivitamin (formulary)] 1 tab PO DAILY 06/17/18 Albuterol Inhaler [Ventolin Hfa Inhaler] 1 - 2 puff INHALATION RT-Q6H PRN 11/02/18 Albuterol Nebulized [Ventolin Nebulized] 2.5 mg INHALATION RT-TID PRN 03/23/19 Ipratropium/Albuterol Sulfate [Combivent Respimat Inhaler] 1 puff INHALATION RT- BID 03/23/19 Thiamine [Vitamin B-1] 100 mg PO DAILY 03/23/19 Topiramate [Topamax] 25 mg PO BID 03/23/19 busPIRone HCl [Buspar] 10 mg PO BID 03/23/19 traZODone HCL [Desyrel] 100 mg PO HS 03/23/19 Gabapentin [Neurontin] 800 mg PO TID 10/17/19 Prazosin [Minipress] 3 mg PO HS 10/21/19 Sertraline [Zoloft] 100 mg PO DAILY 10/21/19 Acetaminophen [Tylenol Arthritis] 3 tab PO TID PRN 12/05/19 Controlled Substance Measures - Controlled Substance Measures Is patient prescribed a controlled substance at discharge?: Yes When asked, does pt state using other controlled substances?: No If prescribed controlled substance>3 days was MAPS reviewed?: Yes If Rx opioid, was Start Talking consent form obtained?: Yes If opioid is for acute pain is fill amount 7 days or less?: Yes Was information provided regarding opioid addiction?: Yes
== END ==
LOC: PNWHC3 13:04
PROVIDERS: ATTEND Specialist
DX: M47.816 Spondylosis without myelopathy or radiculopathy, lumbar region (principal); M25.551 Pain in right hip; M51.36 Other intervertebral disc degeneration, lumbar region; J44.9 Chronic obstructive pulmonary disease, unspecified; Z86.73 Personal history of transient ischemic attack (TIA), and cerebral infarction without residual deficits; M19.90 Unspecified osteoarthritis, unspecified site; I50.9 Heart failure, unspecified; Z88.1 Allergy status to other antibiotic agents; Z87.891 Personal history of nicotine dependence
CPT/HCPCS: 99211

== ENCOUNTER → 2022-06-04 | Outpatient (CLI) | payer OTHER ==
[2022-06-04 09:19] VITALS: BP 96/62; PULSE 60; RESP 18; TEMP 97.8
--- NOTE | 2022-06-04 09:40 | P.PAINPG ---
PQRS Measure Charge Sheet Comment: A 51 yr old female with a history of severe and chronic low back pain secondary to lumbar degenerative disc diseases and lumbar spondylosis with facet arthropathy presents today for x ray results of lumbar spine and R hip. Pain level is currently at 8/10 in intensity, deep, sharp constant in the R aspect of her lumbar spine with radiation of pain towards the RLE. Pt states she "fell" a few weeks ago which provoked pain. Pain is provoked by sitting & standing for periods of 30 min or more. Pain is alleviated with PT 2 yrs ago which worsened pain, lumbar support brace while driving, hot baths, home based stretching regimen, medications (Tylenol #3), topicals, laying supine on L side, heating pads, repositioning and rest. Patient is currently on Tylenol #3 prn Patient denies any side effects of the medication(s), denies excessive drowsiness or sleepiness, denies suicidal ideation and reports that the current pain medication is helping to control the pain and improve activities of daily living. Patient denies any motor or sensory deficits. Patient denies any fever or night sweats, denies any change in the bowel movements or urination. Physical Examination: -Constitutional: Cooperative. Not in acute distress . - Neurologic: Cranial nerve II to XII intact. No focal neurological deficits. - Psychatric: Alert & oriented x 3. Matching mood & appropriate affect. Judgment and insight intact. - Musculoskeletal: Cervical spine: Muscle bulk/ tone/ strength in the bilateral upper extremities normal Vertebral body tenderness to palpation over Spurling test positive Distraction test positive Facet loading test positive Thoracic spine Muscle bulk / tone/ strength in the bilateral paraspinal muscles normal Vertebral body tender to palpation over Facet loading test positive Lumbar spine: Motor bulk/ tone/ strength lower extremities , thigh and legs : 5/5 Deep tendon reflexes : Normal Knee Jerk. Normal Ankle Jerk . Vertebral body tenderness to palpation over L4, L5, S1 Lumbar Facet Loading Test positive Straight Leg Raise: positive at 30 degrees right side/ left side Gaenslen's Test positive Sacral spine : Severe tenderness over the Sacroiliac joint: right side / left side Range of motion: Flexion of the lumbar spine <60 degrees Range of motion: Extension of the lumbar spine <20 degrees Gaenslen's Test positive Dimitri's Test positive Nafisa test: positive right side / left side Thigh Thrust Test Sacral Thrust Test Imaging: X-ray of right hip and lumbar spine from 05/22/22 reviewed Assessment and plan: Chronic low back pain secondary to lumbar degenerative disc disease , lumbar spondylosis with facet arthropathy without myelopathy, R hip OA Recommendation of MRI without contrast of the Lumbar spine and R hip. Pt will continue home pain management modalities and return to our clinic for results and a re evaluation within 2-4 weeks. Risks, benefits of procedure discussed and pt verbalized understanding. Denies anticoagulant use or medical history of diabetes. Chronic and current use of high-risk medication (Opioids). The patient was counseled about risk of opioid use, psychological risk associated with opioids and was orally counseled to not overuse , divert or sell medications. Pt is to store medication in a safe location. The patient is counseled against driving while using narcotic medications and also not to use alcohol or any illicit recreational drugs. Patient verbalized understanding that the lack of compliance will result in failure to renew narcotic prescription(s) as well as possible discharge from the clinic Diagnoses, prognosis and treatment options including but not limited to physical therapy, surgical interventions, interventional therapies and medication management including narcotics and adjuvant medication were discussed. All patient questions answered MAPS reviewed and it was appropriate. Narcotic agreement signed today 06/04/22 Prescription for Tylenol 3 #90 with 1 refill I have spent less than 30 minutes on patient care today. Dr Oquendo was available by phone for the evaluation of this patient. The time was used to review the medical records including relevant urine studies and Prescription history (MAPs), review of the available imaging, evaluation and examination of the patient, coordination of care with the medical staff and if applicable referring physicians, as well as creation of the medical record - Pain Location Right Lower Back Non-Pharmacological Interventions: Heat, Inactivity, Position/Reposition, Stretching Pharmacological Interventions: Scheduled Medication, Topical Medication PQRS Narrative: Smoking Status Former smoker Hx Alcohol Use (MH) No Home Medications: Ambulatory Orders Multivitamins, Thera [Multivitamin (formulary)] 1 tab PO DAILY 06/17/18 Albuterol Inhaler [Ventolin Hfa Inhaler] 1 - 2 puff INHALATION RT-Q6H PRN 11/02/18 Albuterol Nebulized [Ventolin Nebulized] 2.5 mg INHALATION RT-TID PRN 03/23/19 Ipratropium/Albuterol Sulfate [Combivent Respimat Inhaler] 1 puff INHALATION RT- BID 03/23/19 Thiamine [Vitamin B-1] 100 mg PO DAILY 03/23/19 Topiramate [Topamax] 25 mg PO BID 03/23/19 busPIRone HCl [Buspar] 10 mg PO BID 03/23/19 traZODone HCL [Desyrel] 100 mg PO HS 03/23/19 Gabapentin [Neurontin] 800 mg PO TID 10/17/19 Prazosin [Minipress] 3 mg PO HS 10/21/19 Sertraline [Zoloft] 100 mg PO DAILY 10/21/19 Acetaminophen [Tylenol Arthritis] 3 tab PO TID PRN 12/05/19 Diclofenac Sodium Gel [Voltaren Gel] 100 gm TOPICAL BID 30 Days #100 gm 05/22/22 Acetaminophen-Codeine 300-30mg [Tylenol w/codeine #3] 1 tab PO Q8H PRN 30 Days #90 tablet 06/04/22 Controlled Substance Measures - Controlled Substance Measures Is patient prescribed a controlled substance at discharge?: Yes When asked, does pt state using other controlled substances?: No If prescribed controlled substance>3 days was MAPS reviewed?: Yes If Rx opioid, was Start Talking consent form obtained?: Yes
== END ==
LOC: PNWHC3 08:48
PROVIDERS: ATTEND Specialist
DX: M47.816 Spondylosis without myelopathy or radiculopathy, lumbar region (principal); M51.36 Other intervertebral disc degeneration, lumbar region; G89.29 Other chronic pain; M16.11 Unilateral primary osteoarthritis, right hip; Z79.891 Long term (current) use of opiate analgesic; Z88.1 Allergy status to other antibiotic agents; Z88.8 Allergy status to other drugs, medicaments and biological substances; Z87.891 Personal history of nicotine dependence
CPT/HCPCS: 99211

== ENCOUNTER → 2022-06-30 | Outpatient (CLI) | payer OTHER ==
--- NOTE | 2022-06-30 12:20 | MR ---
EXAMINATION TYPE: MR lumbar spine wo con DATE OF EXAM: 06/30/2022 COMPARISON: Lumbar spine MRI 09/13/2019 HISTORY: Right hip and back pain, fall TECHNIQUE: Multiplanar, multisequence images of the lumbar spine were acquired without IV contrast. L1-L2: Normal disc appearance without desiccation. No herniation, protrusion or disc bulging. No ca nal stenosis is present. Foramina are patent bilaterally. L2-L3: Normal disc appearance without desiccation. No herniation, protrusion or disc bulging. No ca nal stenosis is present. Foramina are patent bilaterally. L3-L4: Normal disc appearance without desiccation. No herniation, protrusion or disc bulging. No ca nal stenosis is present. Foramina are patent bilaterally. L4-L5: Posterior central disc herniation is again seen, stable . There is facet arthropathy with hypertrophy ligamentum flavum. No significant foraminal encroachmen t. L5-S1: Posterior central disc herniation is again noted, that may be contact of the proximal S1 nerve roots. No significant foraminal encroachment. Lumbar segments are intact. No paraspinal masses are identified. Conus medullaris has a normal appe arance. Lumbar vertebral bodies are preserved height and alignment. Loss of disc height signal is aga in noted at L5-S1 greater than L4-5 consistent with disc desiccation and degenerative disc disease. N o evident spinal stenosis. Biliary ductal dilatation is again seen. IMPRESSION: Stable disc herniations and L5-S1 and L4-5.
--- NOTE | 2022-06-30 15:04 | MR ---
MR right hip without contrast HISTORY: Pain, trauma No comparisons Multiplanar multisequence imaging obtained through the pelvis with small [id number] images obtaine d at the right hip Osteoarthritic changes present, there is grade 2 to grade III chondromalacia suspected within the rig ht hip, marginal spur formation is noted. There is no evident fracture or dislocation. No definite la bral tear on this nonarthrographic study. Gluteus tendon insertion at the greater trochanter show keyonna e mild increased signal in T2-weighted sequences, coronal image 12 of series 801. Origins of the hams tring musculature normal. Degenerative disc changes are noted in the lower lumbar spine. 2 cm left ovarian cystic lesion is noted incidentally. No free fluid in the pelvis. IMPRESSION: There may be a partial tear, strain of the gluteus tendon insertion at the greater trocha nter, suspect osteoarthritis, degenerative disc disease and additional findings above
== END | disposition home or self-care (01) ==
LOC: RADMRIMAIN 08:49
PROVIDERS: ATTEND Physician Assistant Medical
DX: M51.26 Other intervertebral disc displacement, lumbar region (principal); M16.11 Unilateral primary osteoarthritis, right hip
CPT/HCPCS: 72148

== ENCOUNTER → 2022-08-06 | Outpatient (CLI) | payer OTHER ==
[2022-08-06 08:24] VITALS: BP 112/72; PULSE 59; RESP 18; TEMP 97.7
--- NOTE | 2022-08-07 07:17 | P.PN ---
Subjective Progress Note Date: 08/06/22 This is 52 yrs old female with a history of severe and chronic low back pain secondary to lumbar degenerative disc diseases and lumbar spondylosis with facet arthropathy ,recetely she had MRI of the lumbar spine and she is here to discuss the results ,the MRI showed lumbar herniated disc at L4-5 and L5-S1 ,MRI of the right hip showed partial tear ,Pain level is currently at 8/10 in intensity, deep, sharp constant . Pt states she "fell" a few weeks ago which provoked pain. Pain is provoked by sitting & standing for periods of 30 min or more. Pain is alleviated with PT 2 yrs ago which worsened pain, lumbar support brace while driving, hot baths, home based stretching regimen, medications (Tylenol #3), topicals, laying supine on L side, heating pads, repositioning and rest. Patient is currently on Tylenol #3 prn, Voltaren gel when necessary Patient denies any side effects of the medication(s), denies excessive drowsiness or sleepiness, denies suicidal ideation and reports that the current pain medication is helping to control the pain and improve activities of daily living. Patient denies any motor or sensory deficits. Patient denies any fever or night sweats, denies any change in the bowel movements or urination. Physical Examinations : -Constitutiona : Cooperative , not in acute distress . -HEENT : nech : supple , no Lymphadenopathy , normal thyroid size . : eyes : no ptosis , no icterus, no photophobia . - neurologic : Cranial nerve II to XII intact , no focal neurological deffecit . -psychatric : alert , oriented X 3 , appropriate affect , intact judgment and insight . -Lymphatic : no Lymphadenopathy . Lumber spine moter stegnth lower extremities ,thigh and legs 5/5 Right side , 5/5 Left side deep tendon reflexes : normal Knee Jerk , normal ankle Jerk lumber facet Loading Test =positive Right , positive Left Range of motion of the lumbar spine Flexion 30 degrees, extension 10 degrees strait leg raising test = negative bilaterally Fabere test= negative bilaterally . Sever tenderness over the Sacroiliac joint on the Right side. Gaenslen test= positive right ,and positive left . Seated flexion test= positive right . Distraction test= positive right Sacroiliac compression test= positive right Severe tenderness over the right trochanteric bursa Imaging: X-ray of right hip and lumbar spine from 05/22/22 reviewed MRI of the lumbar spine done 07/21/2022 which showed lumbar degenerative disc disease and lumbar herniated disc disease and lumbar facet arthropathy MRI of the right hip reviewed Assessment and plan: Right sacroiliitis Right trochanteric bursitis lumbar degenerative disc disease , lumbar spondylosis with facet arthropathy without myelopathy, R hip OA Recommendation for right sacroiliac joint steroid injection and the right trochanteric bursa steroid injection Chronic and current use of high-risk medication (Opioids). The patient was counseled about risk of opioid use, psychological risk associated with opioids and was orally counseled to not overuse , divert or sell medications. Pt is to store medication in a safe location. The patient is counseled against driving while using narcotic medications and also not to use alcohol or any illicit recreational drugs. Patient verbalized understanding that the lack of compliance will result in failure to renew narcotic prescription(s) as well as possible discharge from the clinic Diagnoses, prognosis and treatment options including but not limited to physical therapy, surgical interventions, interventional therapies and medication management including narcotics and adjuvant medication were discussed. All patient questions answered MAPS reviewed and it was appropriate. Narcotic agreement signed today 06/04/22 Prescription for Tylenol 3 #90 with 1 refill Objective - Vital Signs Vital signs: Intake & Output 08/05/22 08/06/22 08/06/22 18:59 06:59 18:59 Weight 66.678 kg
== END ==
LOC: PNWHC3 06:57
PROVIDERS: ATTEND Specialist
DX: M46.1 Sacroiliitis, not elsewhere classified (principal); M47.816 Spondylosis without myelopathy or radiculopathy, lumbar region; M70.61 Trochanteric bursitis, right hip; M51.36 Other intervertebral disc degeneration, lumbar region; M16.11 Unilateral primary osteoarthritis, right hip; Z79.891 Long term (current) use of opiate analgesic; Z88.1 Allergy status to other antibiotic agents; Z88.8 Allergy status to other drugs, medicaments and biological substances; Z87.891 Personal history of nicotine dependence
CPT/HCPCS: 80307; G0482; G0463; 99212

== ENCOUNTER 2022-08-26 12:59 | Day surgery (SDC) | payer OTHER ==
[2022-08-26 13:42] VITALS: TEMP 97.4
[2022-08-26] MEDS ORDERED: LACTATED RINGERS 1,000 ML IV ONE (13:42)
[2022-08-26] MEDS ORDERED: MIDAZOLAM 2 MG/2 ML VIAL ONE (14:21)
[2022-08-26] MEDS ORDERED: ROPIVACAINE 5 MG/ML 20 ML AMPULE ONE (14:21)
[2022-08-26] MEDS ORDERED: methylPREDNISolone ACETATE 40 MG/ML 1 ML VIAL ONE (14:21)
[2022-08-26] MEDS ORDERED: fentaNYL (PF) 50 MCG/ML 2 ML AMP ONE (14:21)
[2022-08-26] MEDS ORDERED: LIDOCAINE 1% (10MG/ML) FOR IV START INTRADERMA PRN (14:31)
[2022-08-26] MEDS ORDERED: LACTATED RINGERS 1,000 ML IV SCH (14:31)
--- NOTE | 2022-08-26 14:31 | P.PCN ---
Date of Procedure: 08/26/22 Procedure(s) Performed: Procedure= Right sacroiliac joints steroid injection under fluoroscopy guidance (fluoroscopy image stored on file in the radiology Department ) Preoperative diagnosis= 1- Right sacroiliitis 2-right trochanteric bursitis 3-lumbar facet arthropathy Postoperative diagnosis=Same as preop Diagnosis . Complication = none Condition= stable Anesthesia= moderate sedation with intravenous Versed 2 mg , and fentanyl 100 micrograms . Sedation start time: 1423 Sedation end time : 1329 Indication for the procedure= patient complaining of low back pain , examination was positive for severe tenderness over the sacroiliac joints bilaterally and patient diagnosed with sacroiliitis, for this reason she was good candidate for sacroiliac joint steroid injection. Description of the procedure= procedure risk and benefits discussed with the patient, including but not limited, risk of infection and bleeding, and ALLERGIC reaction to the medication and not complete pain relief and patient agreed with the preceding patient taken to the operating room, placed in prone position or standard monitors applied to the patient then after induction of anesthesia back prepped with chlorhexidine 3 times , Then under strict sterile technique, first I did the right sacroiliac joint the which was identified under fluoroscopy guidance been local infiltration of the skin and subcu interstitial with lidocaine 1% then 22-gauge Quincke Needle advanced slowly under fluoroscopy and placed in the right sacroiliac joint needle placement confirmed with AP and oblique and lateral view and after appropriate needle placement confirmed and after negative aspiration, or heme , then Ropivacaine 0.5% 4 mL, and 40 mg of Depo-Medrol mixed together and injected in the right sacroiliac joint after negative aspiration patient tolerated the procedure well without any complication.
[2022-08-26] MEDS ORDERED: IV FLUID CONTINUATION 800 ML IV ONE (14:36)
[2022-08-26 14:47] VITALS: PULSE 72
--- NOTE | 2022-08-26 14:54 | FL ---
Fluoroscopy HISTORY: Pain 7 seconds fluoroscopy time supplied to the referring clinician. 1 intraoperative C-arm images docume nt the procedure. See dictated report from anesthesia.
[2022-08-26 15:00] VITALS: BP 96/65; RESP 16
== END 2022-08-26 15:07 | disposition home or self-care (01) ==
LOC: ORPAIN 12:59
PROVIDERS: ATTEND Specialist
DX: M46.1 Sacroiliitis, not elsewhere classified (principal); M70.61 Trochanteric bursitis, right hip; M47.816 Spondylosis without myelopathy or radiculopathy, lumbar region
CPT/HCPCS: G0260 ×2; J2250; J1030; J3010; J2795; 27096

== ENCOUNTER → 2022-10-01 | Outpatient (CLI) | payer OTHER ==
[2022-10-01 13:52] VITALS: BP 107/70; PULSE 96; RESP 18
--- NOTE | 2022-10-01 14:13 | P.PAINPG ---
PQRS Measure Charge Sheet Comment: A 52 yr old female with a history of severe and chronic low back pain x 5 mo secondary to lumbar degenerative disc diseases and lumbar spondylosis with facet arthropathy without myelopathy presents today for evaluation s/p R SI injection. Pt states she experienced 80 % pain relief x 5 wks s/p procedure. Pain level is currently at 9/10 in intensity, constant, localized in the BL lower lumbar spine where it meets the tailbone, stabbing in character w shooting towards the BLEs. Pain is provoked by lifting/ bending/ twisting. Pain is alleviated with PT x 6 wks in 2020, massage therapy in May 2021 but was ineffective, heat, ice, medications (Tylenol #3), topicals, hot baths, repositioning and rest. Interventional pain procedures completed include R SI injection, Burt Patient is currently on Tylenol #3 prn Patient denies any side effects of the medication(s), denies excessive drowsiness or sleepiness, denies suicidal ideation and reports that the current pain medication is helping to control the pain and improve activities of daily living. Patient denies any motor or sensory deficits. Patient denies any fever or night sweats, denies any change in the bowel movements or urination. Physical Examination: -Constitutional: Cooperative. Not in acute distress . - Neurologic: Cranial nerve II to XII intact. No focal neurological deficits. - Psychatric: Alert & oriented x 3. Matching mood & appropriate affect. Judgment and insight intact. - Musculoskeletal: Cervical spine: Muscle bulk/ tone/ strength in the bilateral upper extremities normal Vertebral body tenderness to palpation over Spurling test positive Distraction test positive Facet loading test positive Thoracic spine Muscle bulk / tone/ strength in the bilateral paraspinal muscles normal Vertebral body tender to palpation over Facet loading test positive Lumbar spine: Motor bulk/ tone/ strength lower extremities , thigh and legs : 5/5 Deep tendon reflexes : Normal Knee Jerk. Normal Ankle Jerk . Vertebral body tenderness to palpation over L5 Lumbar Facet Loading Test positive Straight Leg Raise: positive at 30 degrees right side/ left side Gaenslen's Test positive Sacral spine : Severe tenderness over the Sacroiliac joint: right side / left side Range of motion: Flexion of the lumbar spine <60 degrees Range of motion: Extension of the lumbar spine <20 degrees Gaenslen's Test positive Dimitri's Test positive Nafisa test: positive right side / left side Thigh Thrust Test Sacral Thrust Test Assessment and plan: Chronic low back pain secondary to lumbar degenerative disc disease , lumbar spondylosis with facet arthropathy without myelopathy Recommendation of LILIAN L5-S1. May need a series of injections, up to 3 within a 6 mo period, for optimal pain relief. Risks, benefits of procedure discussed and pt verbalized understanding. Denies anticoagulant use or medical history of diabetes. Chronic and current use of high-risk medication (Opioids). The patient was counseled about risk of opioid use, psychological risk associated with opioids and was orally counseled to not overuse , divert or sell medications. Pt is to store medication in a safe location. The patient is counseled against driving while using narcotic medications and also not to use alcohol or any illicit recreational drugs. Patient verbalized understanding that the lack of compliance will result in failure to renew narcotic prescription(s) as well as possible discharge from the clinic Diagnoses, prognosis and treatment options including but not limited to physical therapy, surgical interventions, interventional therapies and medication management including narcotics and adjuvant medication were discussed. All patient questions answered MAPS reviewed and it was appropriate. UDS from 08/06/22 reviewed and consistent Prescription for [place] 5/325mg #90 w 1 RF. Narcotic and opiate agreement signed today 10/01/22. Discontinue Tylenol #3 I have spent less than 30 minutes on patient care today. Dr Oquendo was available by phone for the evaluation of this patient. The time was used to review the medical records including relevant urine studies and Prescription history (MAPs), review of the available imaging, evaluation and examination of the patient, coordination of care with the medical staff and if applicable referring physicians, as well as creation of the medical record PQRS Narrative: Smoking Status Former smoker Hx Alcohol Use (MH) No Home Medications: Ambulatory Orders Multivitamins, Thera [Multivitamin (formulary)] 1 tab PO DAILY 06/17/18 Albuterol Inhaler [Ventolin Hfa Inhaler] 1 - 2 puff INHALATION RT-Q6H PRN 11/02/18 Albuterol Nebulized [Ventolin Nebulized] 2.5 mg INHALATION RT-TID PRN 03/23/19 Ipratropium/Albuterol Sulfate [Combivent Respimat Inhaler] 1 puff INHALATION RT- BID 03/23/19 Thiamine [Vitamin B-1] 100 mg PO DAILY 03/23/19 Topiramate [Topamax] 25 mg PO BID 03/23/19 busPIRone HCl [Buspar] 10 mg PO BID 03/23/19 traZODone HCL [Desyrel] 100 mg PO HS 03/23/19 Gabapentin [Neurontin] 800 mg PO TID 10/17/19 Prazosin [Minipress] 3 mg PO HS 10/21/19 Sertraline [Zoloft] 100 mg PO DAILY 10/21/19 Acetaminophen [Tylenol Arthritis] 3 tab PO TID PRN 12/05/19 Diclofenac Sodium Gel [Voltaren Gel] 100 gm TOPICAL BID 30 Days #100 gm 05/22/22 HYDROcodone/APAP 5-325MG [[place] 5-325] 1 tab PO Q8HR PRN 30 Days #90 tab 10/01/22 HYDROcodone/APAP 5-325MG [[place] 5-325] 1 tab PO TID 30 Days #90 tab 10/01/22 Controlled Substance Measures - Controlled Substance Measures Is patient prescribed a controlled substance at discharge?: Yes When asked, does pt state using other controlled substances?: No If prescribed controlled substance>3 days was MAPS reviewed?: Yes If Rx opioid, was Start Talking consent form obtained?: Yes Was information provided regarding opioid addiction?: Yes
== END ==
LOC: PNWHC3 13:26
PROVIDERS: ATTEND Anesthesiology
DX: M47.816 Spondylosis without myelopathy or radiculopathy, lumbar region (principal); M51.36 Other intervertebral disc degeneration, lumbar region; G89.29 Other chronic pain; Z79.891 Long term (current) use of opiate analgesic; Z87.891 Personal history of nicotine dependence; Z88.1 Allergy status to other antibiotic agents; Z88.0 Allergy status to penicillin; Z88.8 Allergy status to other drugs, medicaments and biological substances
CPT/HCPCS: 99211

== ENCOUNTER 2022-10-16 11:16 | Day surgery (SDC) | payer OTHER ==
[2022-10-16 11:43] VITALS: TEMP 97.6
[2022-10-16] MEDS ORDERED: LACTATED RINGERS 1,000 ML IV ONE (11:52)
[2022-10-16] MEDS ORDERED: fentaNYL (PF) 50 MCG/ML 2 ML AMP ONE (11:56)
[2022-10-16] MEDS ORDERED: MIDAZOLAM 2 MG/2 ML VIAL ONE (11:56)
[2022-10-16] MEDS ORDERED: methylPREDNISolone ACETATE 80 MG/ML 1 ML VIAL ONE (11:56)
[2022-10-16] MEDS ORDERED: IOPAMIDOL M200 10 ML VIAL ONE (11:56)
--- NOTE | 2022-10-16 12:12 | P.PCN ---
Date of Procedure: 10/16/22 Procedure(s) Performed: PREOPERATIVE DIAGNOSIS: 1- Lumbar herniated Disc Diseases 2-Lumbar Radiculopathy. POSTOPERATIVE DIAGNOSIS: Same as preop diagnosis. PROCEDURE 1. Lumbar epidural steroid injection under fluoroscopic guidance at the L5-S1 level. (Fluoroscopy imaging was available in radiology department) 2. Lumbar epidurogram. ANESTHESIA: moderate sedation with intravenous Versed 2 mg ,and fentanyle 100 Mcg Sedation start time : 1158 Sedation end time : 12 08 EBL: Minimal PROCEDURE INDICATION: The patient with low back pain and radiculitis symptoms unresponsive to conservative treatment. Fluoroscopy was used to optimize visualization of the needle placement and to maximize safety. PROCEDURE DESCRIPTION / TECHNIQUE: The patient was seen and identified in the preoperative area. Risks, benefits, complications including but not limited to infections ,bleeding ,allergic reaction to the medications ,nerve damage and not complete pain releife , and alternatives were discussed with the patient. The patient agreed to proceed with the procedure and signed the consent. IV was started, and vital signs were stable. Patient was taken to the OR and time out was completed. The patient was placed in the prone position on procedure table and a pillow was placed under the abdomen to reduce lumbar lordosis. The lumbosacral area was prepped and draped in the usual sterile fashion.ere closely monitored during the procedure. Conscious sedation was used during the procedure to decrease patients anxiety. Vital signs was monitered during the entire procedure. Using anterior-posterior fluoroscopy, the L5-S1 interlaminar space was identified and the skin over this site was marked and then infiltrated with 1% lidocaine subcutaneously. Subsequently, a 20-gauge Tuohy epidural needle was inserted and advanced toward the epidural space using the ``Loss of resistance technique and guided by AP and lateral fluoroscopy. The correct needle position in the epidural space was verified with the injection of 2 mL of the water soluble contrast dye Isovue 200 contrast and observing an excellent epidurogram with the epidural spread of the dye, after negative aspiration for blood and CSF and in the absence of paresthesias. Again after negative aspiration, a 6 ml mixture containing 80 mg of Depo-medrol ( Preservetive Free ), and 2 ml of preservative free Normal Saline, and 2 ml of preservative free lidocaine 1% solution was injected and a washout of epidurogram was seen. Needle was withdrawn intact, skin was cleansed, and bandages were applied. COMPLICATIONS: None DISPOSITION / PLANS: The patient was placed in a supine position and transferred to the recovery area in a stable condition for observation. There was no evidence of lower extremity motor or sensory deficit after the procedure. Patient was discharged from the recovery room after meeting discharge criteria. Home discharge instructions were given to the patient by the staff. The patient was reexamined prior to discharge. The patient will schedule a follow up in the clinic in 2-4 weeks.
[2022-10-16] MEDS ORDERED: IV FLUID CONTINUATION 1,000 ML IV ONE (12:15)
--- NOTE | 2022-10-16 12:22 | FL ---
EXAMINATION TYPE: FL guided pain mgmt statistic DATE OF EXAM: 10/16/2022 HISTORY: Fluoroscopy time 3 seconds of fluoroscopy provided. IMPRESSION: 1. Fluoroscopy time.
[2022-10-16 12:23] VITALS: RESP 15
[2022-10-16 12:34] VITALS: BP 117/50; PULSE 58
[2022-10-16] MEDS ORDERED: LACTATED RINGERS 1,000 ML IV SCH (12:45)
== END 2022-10-16 12:50 | disposition home or self-care (01) ==
LOC: ORPAIN 11:16
PROVIDERS: ATTEND Specialist
DX: M51.16 Intervertebral disc disorders with radiculopathy, lumbar region (principal)
CPT/HCPCS: 62323; 99152; J2250; J1040; J3010; Q9966

== ENCOUNTER → 2025-02-03 | Outpatient (CLI) | payer OTHER ==
[2025-02-03 15:30] LABS: HCT 46.6 % (37.2-46.3); MCH 31.6 pg (27.0-32.0); MCHC 32.2 g/dL (32.0-37.0); MCV 98.3 FL (80.0-97.0); Mean Platelet Volume 11.9 FL (9.5-12.2); NRBC Per 100 WBC 0 X 10*3/uL (0.00-0.01); Platelet Count 229 X 10*3/uL (140-440); RBC 4.74 X 10*6/uL (4.10-5.20); RDW 13.2 % (11.5-14.5); WBC 7.03 X 10*3/uL (4.50-10.00)
== END | disposition home or self-care (01) ==
LOC: LABWHC1 09:51
PROVIDERS: ATTEND Family Medicine
DX: E03.9 Hypothyroidism, unspecified (principal); M25.511 Pain in right shoulder; R23.2 Flushing; R53.83 Other fatigue; R63.1 Polydipsia
CPT/HCPCS: 36415; 82607; 83036; 84443; 85027

== ENCOUNTER → 2025-02-03 | Outpatient (CLI) | payer OTHER ==
--- NOTE | 2025-02-03 10:57 | XR ---
EXAMINATION TYPE: XR shoulder complete RT DATE OF EXAM: 02/03/2025 10:53 AM COMPARISON: None. CLINICAL INDICATION: Female, 54 years old with history of M25.511 Pain rt shoulder, pain TECHNIQUE: Three views of the right shoulder are obtained. FINDINGS: There is no acute fracture/dislocation evident in the right shoulder. The acromioclavicu lar and glenohumeral joint spaces appear within normal limits. The visualized ribs are intact and un remarkable. IMPRESSION: Unremarkable study. [facility], , 02/03/2025 10:55 AM
== END | disposition home or self-care (01) ==
LOC: RADXRMAIN 10:38
PROVIDERS: ATTEND Family Medicine
DX: M25.511 Pain in right shoulder (principal)

== ENCOUNTER → 2025-05-17 | Outpatient (CLI) | payer OTHER ==
[2025-05-17 10:17] VITALS: BP 123/80; PULSE 61; RESP 16; TEMP 97.3
--- NOTE | 2025-05-17 15:38 | P.PAINPG ---
PQRS Measure Charge Sheet Comment: A 54 yr old female with a history of severe and chronic low back pain > 2 yrs secondary to radiculopathy, spondylosis with facet arthropathy without myelopathy presents today for evaluation s/p LILIAN L5-S1. Pt states she experienced 80 % pain relief x 12 mos s/p procedure. Pain level is currently at 9 /10 in intensity, constant, localized in the BL lower lumbar spine, predominantly axial, stabbing in character w occasional shooting towards the BLEs. Pain is provoked by lifting/ bending/ twisting. Pain is alleviated with PT x 6 wks in 2020, massage therapy in May 2021 but was ineffective, heat, ice, medications, topicals, hot baths, repositioning and rest. Oswestry axial pain score of 27. Interventional pain procedures completed include R SI injection (2021), LILIAN L5- S1 (10/21) Patient is currently on Tyl, Ibu, Voltaren Patient denies any side effects of the medication(s), denies excessive drow siness or sleepiness, denies suicidal ideation and reports that the current pain medication is helping to control the pain and improve activities of daily living. Patient denies any motor or sensory deficits. Patient denies any fever or night sweats, denies any change in the bowel movements or urination. Physical Examination: -Constitutional: Cooperative. Not in acute distress . - Neurologic: Cranial nerve II to XII intact. No focal neurological deficits. - Psychatric: Alert & oriented x 3. Matching mood & appropriate affect. Judgment and insight intact. - Musculoskeletal: Cervical spine: Muscle bulk/ tone/ strength in the bilateral upper extremities normal Vertebral body tenderness to palpation over Spurling test positive Distraction test positive Facet loading test positive Thoracic spine Muscle bulk / tone/ strength in the bilateral paraspinal muscles normal Vertebral body tender to palpation over Facet loading test positive Lumbar spine: Motor bulk/ tone/ strength lower extremities , thigh and legs : 5/5 Deep tendon reflexes : Normal Knee Jerk. Normal Ankle Jerk . Vertebral body tenderness to palpation over L5 Lumbar Facet Loading Test positive Straight Leg Raise: positive at 30 degrees right side/ left side Gaenslen's Test positive Sacral spine : Severe tenderness over the Sacroiliac joint: right side / left side Range of motion: Flexion of the lumbar spine <60 degrees Range of motion: Extension of the lumbar spine <20 degrees Gaenslen's Test positive Dimitri's Test positive Nafisa test: positive right side / left side Thigh Thrust Test Sacral Thrust Test Assessment and plan: Chronic low back pain secondary to lumbar degenerative disc disease , lumbar spondylosis with facet arthropathy without myelopathy Recommendation of PT x 6 wks . M54.16. Risks, benefits of procedure discussed and pt verbalized understanding. Chronic and current use of high-risk medication (Opioids). The patient was counseled about risk of opioid use, psychological risk associated with opioids and was orally counseled to not overuse , divert or sell medications. Pt is to store medication in a safe location. The patient is counseled against driving while using narcotic medications and also not to use alcohol or any illicit recreational drugs. Patient verbalized understanding that the lack of compliance will result in failure to renew narcotic prescription(s) as well as possible discharge from the clinic Diagnoses, prognosis and treatment options including but not limited to physical therapy, surgical interventions, interventional therapies and medication management including narcotics and adjuvant medication were discussed. All patient questions answered MAPS reviewed and it was appropriate. UDS from 08/06/22 reviewed and consistent. Prescription for [place] 5 /325mg #90 w 1 RF. Narcotic and opiate agreement signed 05/17/25. I have spent less than 30 minutes on patient care today. Dr Oquendo was available by phone for the evaluation of this patient. The time was used to review the medical records including relevant urine studies and Prescription history (MAPs), review of the available imaging, evaluation and examination of the patient, coordination of care with the medical staff and if applicable referring physicians, as well as creation of the medical record - Pain Location Bilateral Lower Back Non-Pharmacological Interventions: Heat, Ice, Inactivity, Position/Reposition, Relaxation Technique, Sitting, Standing Pharmacological Interventions: Epidural, PRN Medication, Topical Medication PQRS Narrative: Smoking Status Former smoker Hx Alcohol Use (MH) No Home Medications: Ambulatory Orders Multivitamins, Thera [Multivitamin (formulary)] 1 tab PO DAILY 06/17/18 Topiramate [Topamax] 25 mg PO BID 03/23/19 traZODone HCL [Desyrel] 100 mg PO HS 03/23/19 Prazosin [Minipress] 3 mg PO HS 10/21/19 Sertraline [Zoloft] 100 mg PO DAILY 10/21/19 Acetaminophen [Tylenol Arthritis] 3 tab PO TID PRN 12/05/19 Diclofenac Sodium Gel [Voltaren 1% Gel] 100 gm TOPICAL BID 30 Days #100 gm 05/22/22 Furosemide [Lasix] 20 mg PO DAILY 05/17/25 Levothyroxine Sodium 112 mcg PO DAILY 05/17/25 clonazePAM [Clonazepam] 0.5 mg PO PRN 05/17/25 Controlled Substance Measures - Controlled Substance Measures Is patient prescribed a controlled substance at discharge?: Yes When asked, does pt state using other controlled substances?: No If prescribed controlled substance>3 days was MAPS reviewed?: Yes If Rx opioid, was Start Talking consent form obtained?: Yes Was information provided regarding opioid addiction?: Yes
== END ==
LOC: PNWHC3 09:17
PROVIDERS: ATTEND Specialist
DX: M47.26 Other spondylosis with radiculopathy, lumbar region (principal); M51.360 Other intervertebral disc degeneration, lumbar region with discogenic back pain only; Z87.891 Personal history of nicotine dependence; Z91.018 Allergy to other foods; Z88.1 Allergy status to other antibiotic agents; Z88.8 Allergy status to other drugs, medicaments and biological substances
CPT/HCPCS: 99211